=== PATIENT | male | born 1965 | race Caucasian/White ===

== ENCOUNTER 2017-02-08 17:08 | Emergency (ER) | payer OTHER ==
[~2017-02-08] VITALS: Ht 170.2 cm; Wt 64.9 kg
[~2017-02-08 17:08] MED LIST: ACET-7568 PO; ASCO500C19 PO; ASPI-292 PO; CIPR500T4 PO; CLON0.1T79 PO; DIVA500E2 PO; DOCU100C5 PO; OLAN10TA26 PO; PHE6.25L PO; QUET200T PO; QUET300T26 PO; [UNRECOGNIZED DRUG - CODE]; [UNRECOGNIZED DRUG - CODE] PO; [UNRECOGNIZED DRUG - CODE] PO; [UNRECOGNIZED DRUG - CODE] PO; [UNRECOGNIZED DRUG - OTHER] PO
[2017-02-08 18:12] VITALS: BP 109/69
--- NOTE | 2017-02-08 19:30 | NUR ---
51//M BIB [facility] WITH C/O SOB, CARE[facility] STATED " HE HAS BEEN HAVING CONGESTION, AND SHALLOW BREATHING. 18RR, EVEN AND REGULAR, ALL LUNG SOUNDS CBTA, SATS 90% ON RA. 118HR EVEN AND REGULAR. PT PLACED ON O2 2LPMNC, SATS 96%. [facility] REPORTS HE HAS BEEN COUGHING, AND HAS BEEN GIVEN PROMTEHAZINE PRN WITH MINIMAL RELIEF OF SYMPTOMS. NO S/S OF PAIN AT THIS TIME, PT CALM AND LYING ON BED. [facility] AT BEDSIDE. BED IN LOW POSITION, HOB ELEVATED HX: CEREBRAL PALSY, ATYPICAL PSYCHOSIS.
[2017-02-08 22:28] VITALS: BP 109/49
--- NOTE | 2017-02-08 22:29 | NUR ---
Patient discharged with v/s stable. Written and verbal after care instructions given and explained. Patient alert, oriented and verbalized understanding of instructions. Ambulatory with steady gait. All questions addressed prior to discharge. ID band removed. Patient advised to follow up with PMD. Rx of AZITHROMYCIN given. Patient educated on indication of medication including possible reaction and side effects. Opportunity to ask questions provided and answered.
[2017-02-09] MEDS ORDERED: PRAV20TA2 PO (21:13)
[2017-02-09] MEDS ORDERED: ASPI81CT89 PO (21:13)
[2017-02-09] MEDS ORDERED: ALPR0.5T2 PO (21:13)
[2017-02-09] MEDS ORDERED: BENA5TAB4 PO (21:13)
[2017-02-09] MEDS ORDERED: ATI.5 PO (21:13)
[2017-02-09] MEDS ORDERED: SYN.05 PO (21:13)
[2017-02-09] MEDS ORDERED: OLAN2.5T1 PO (21:13)
== END 2017-02-08 22:29 | disposition home or self-care (01) ==
LOC: MED 17:08
DX: J02.9 Acute pharyngitis, unspecified (principal); Z79.899 Other long term (current) drug therapy; Z91.041 Radiographic dye allergy status; Z79.82 Long term (current) use of aspirin
CPT/HCPCS: 71010; 99283; Q0092

== ENCOUNTER 2017-02-09 20:50 | Inpatient (IN) | payer OTHER ==
[~2017-02-09] VITALS: Ht 165.1 cm; Wt 60.8 kg
--- NOTE | 2017-02-09 20:50 | NUR ---
PT MAXINE ALS. TAKEN TO BED 4
--- NOTE | 2017-02-09 20:51 | NUR ---
51/M BIBA C/O WORSENING SOB SINCE 1800 [facility]. PT WAS SEEN YESTERDAY IN ER FOR SIMILAR SYMPTOMS, DX: URI RX: AZITHROMYCIN. PT PRESENTS WITH EXCESSIVE COUGHING, 30RR LABORED AND SHALLOW, 89% SPO2 10LPM ON MASK, 142 HR. COARSE CRACKLES THROUGHOUT NOTED. PT PLACED ON HIGH MENDOZA AND NONREBREATHER MASK. SATS 91% ,142 HR. RT CALLED IN. ORAL SUCTIONING WITH THICK WHITE/YELLOW SPUTUM. PMH: MENTAL RETARDATION, CEREBAL PALSY, ATYPICAL PSYCHOSIS. EMS REPORTED THEY GAVE 2 DOSES OF ALBUTEROL NEB.
[2017-02-09 20:53] VITALS: BP 159/108
--- NOTE | 2017-02-09 21:00 | NUR ---
Dr. Price evaluating patient at bedside.
--- NOTE | 2017-02-09 21:04 | NUR ---
X-Ray at bedside.
--- NOTE | 2017-02-09 21:08 | NUR ---
Respiratory Therapist at bedside for respiratory intervention.
[2017-02-09] MEDS ORDERED: ASPI81CT89 PO (21:13)
[2017-02-09] MEDS ORDERED: ALBUTEROL SULFATE/IPRATROPIU 3 ML SOL IH ONE (21:13)
[2017-02-09] MEDS ORDERED: SYN.05 PO (21:13)
[2017-02-09] MEDS ORDERED: PRAV20TA2 PO (21:13)
[2017-02-09] MEDS ORDERED: ALPR0.5T2 PO (21:13)
[2017-02-09] MEDS ORDERED: BENA5TAB4 PO (21:13)
[2017-02-09] MEDS ORDERED: ATI.5 PO (21:13)
[2017-02-09] MEDS ORDERED: OLAN2.5T1 PO (21:13)
[2017-02-09] MEDS ORDERED: IPRATROPIUM 0.02% 0.5 MG/2.5 ML NEBU INH ONE ×2 (21:20→21:35)
[2017-02-09] MEDS ORDERED: NACL 0.9% 1,000 ML IV ONE ×3 (21:20→23:55)
[2017-02-09] MEDS ORDERED: LEVOFLOXACIN 750 MG/D5W PREMIX 150 ML IV ONE (21:20)
[2017-02-09] MEDS ORDERED: ALBUTEROL 0.083% 2.5 MG/3 ML NEBU INH ONE ×2 (21:20)
[2017-02-09] MEDS ORDERED: VANCOMYCIN 1GM/DEXT 5% PREMIX 200 ML IV ONE (21:20)
[2017-02-09] MEDS ORDERED: methylPREDNISolone SS 125 MG in WATER STERILE 2 ML IV ONE (21:20)
--- NOTE | 2017-02-09 21:38 | NUR ---
I WAS CALLED IN ER FOR THE PT THAT IS SOB AND SAT 89% IN NRB. I JUST WENT TO ER TO SEE THE PT, AND DR ZIEGLER GAVE ME VERBAL ORDER TO DO TWO DUONEB HHN TX AND SX PT, AND I JUST DID, BUT WHEN THE ORDER COME, HE WROTE ALBUTEROL TIMES 2, AND ATROVENT TIMES 2, WHO IS THE SAME LIKE TWO DUONEBS.
[2017-02-09] MEDS ORDERED: VANCOMYCIN 1,000 MG VIAL ONE (21:39)
[2017-02-09] MEDS ORDERED: LORazepam 2 MG/ML VIAL IVP ONE ×2 (21:45→23:30)
[2017-02-09 21:49] LABS: BASOPHILS # (AUTO) 0.1 K/uL (0.00-0.22); BASOPHILS % (AUTO) 1.4 % (0.0-2.0); EOSINOPHILS % (AUTO) 0.2 % (0.0-4.0); HEMATOCRIT 38.9 % (36-52); HEMOGLOBIN 13.2 g/dL (12.0-18.0); LYMPHOCYTES # (AUTO) 0.6 K/uL (2.0-11.5); LYMPHOCYTES % (AUTO) 7.1 % (20.5-51.1); MEAN CORPUSCULAR HEMOGLOBIN 32 pg (27-31); MEAN CORPUSCULAR HGB CONC 34 g/dL (33-37); MEAN CORPUSCULAR VOLUME 94 fL (80-94); MONOCYTES % (AUTO) 12.8 % (1.7-9.3); NEUTROPHILS # (AUTO) 6.3 K/uL (1.8-7.7); NEUTROPHILS % (AUTO) 78.5 % (42.2-75.2); PLATELET COUNT (AUTO) 112 K/uL (140-450); RED BLOOD CELL COUNT(AUTO) 4.15 MIL/uL (4.20-6.10); RED CELL DISTRIBUTION WIDTH 12.6 % (11.6-13.7)
--- NOTE | 2017-02-09 22:00 | NUR ---
BP: 138/76, 137HR, 44RR, 95% SPO2 ON NONREBREATHER, HI FLOW. PT ORALLY SUCTIONED, WHITE/YELLOW SECRETIONS NOTED. COARSE LUNG SOUNDS THROUGHOUT, SHALLOW AND LABORED RESPIRATIONS NOTED. ER MD UPDATED OF PT STATUS.
[2017-02-09 22:04] LABS: ALBUMIN 3.3 g/dL (3.4-5.0); ANION GAP 17.1 (8-16); CARBON DIOXIDE 24.1 mmol/L (21-32); CREATININE 1.1 mg/dL (0.7-1.3); POTASSIUM 3.2 mmol/L (3.5-5.1); TOTAL BILIRUBIN 0.5 mg/dL (0.0-1.0)
--- NOTE | 2017-02-09 22:20 | NUR ---
PT APPEARS MORE CALM, RESTING. VS: 132/81, 138HR, 96% ON HIFLOW NONREBREATHER, 40RR EVEN AND SLIGHTLY LABORED. PT CONTINUOUS TO HAVE ORAL SECRETIONS, SUCTIONED ORALLY, YELLOW/WHITE SECRETIONS NOTED. PT REPOSITIONED TO RT SIDE, BED ON HIGH-FOWLERS.
[2017-02-09] MEDS ORDERED: diphenhydrAMINE 50 MG/ML VIAL IVP ONE (23:20)
--- NOTE | 2017-02-09 23:25 | NUR ---
PT RESTLESS, WITH SHALLOW AND LABORED BREATHING. VS: 152/99,138 HR, 86% HIFLOW, 36RR. ER MD MADE AWARE OF PT STATUS. RECEIVED ORDER TO GIVE ATIVAN IV, SEE MAR
[2017-02-09] MEDS ORDERED: HYDROcodone/APAP 7.5/325 MG 1 TAB PO PRN (23:40)
[2017-02-09] MEDS ORDERED: DOCUSATE SODIUM 100 MG GELCAP PO PRN (23:40)
[2017-02-09] MEDS ORDERED: ONDANSETRON 4 MG/2 ML VIAL IM/IVP PRN (23:40)
[2017-02-09] MEDS ORDERED: MORPHINE SULFATE 2 MG/ML SYR IVP PRN (23:40)
[2017-02-09] MEDS ORDERED: ACETAMINOPHEN 325 MG TAB PO PRN (23:40)
--- NOTE | 2017-02-09 23:45 | NUR ---
PT CONTINUOUS TO BE RESTLESS, SATS 88% ON HIFLOW, SHALLOW AND LABORED RESPIRATIONS 51RR, 139HR, 148/98 BP. ER MD MADE AWARE OF PT STATUS.
[2017-02-10] VITALS (99 sets, daily range): BP systolic 62–136; BP diastolic 35–101
--- NOTE | 2017-02-10 00:03 | NUR ---
RT AT BEDSIDE.
[2017-02-10] MEDS ORDERED: NACL 0.9% 1,000 ML IV ONE ×3 (00:05→16:05)
--- NOTE | 2017-02-10 00:10 | NUR ---
Note undone in EDM - 02/10/17 at 0348 by GLORIA PT SATS ON 82% ON NONREBREATHER HIFLOW, 146 HR, 56RR LABORED, BP 159/108. PT RESTLESS AND PALE. ER MD MADE AWARE OF PT STATUS. PT PREPARED FOR RSI, ETOMIDATE GIVEN, RT AT BEDSIDE. ETT 7.5CM, 23 AT LIP. VENT: AC, 500TV, RATE 14, 5 PEEP, 100% FIO2. PROPOFOL DRIP STARTED AT 5MCG/KG/MIN PER MD ORDERS,TITRATED PER PROTOCOL, SEE MAR.
[2017-02-10] MEDS ORDERED: PROPOFOL 200 MG/20 ML VIAL IV ONE (00:20)
[2017-02-10] MEDS ORDERED: ETOMIDATE 20 MG/10 ML VIAL IVP ONE (00:20)
--- NOTE | 2017-02-10 00:28 | NUR ---
RASS +2, VS: 114/69, 128HR, 96% VENT, 42 RR. PROPOFOL DRIP STARTED AT 5MCG/KG/MIN PER MD ORDERS,TITRATED PER PROTOCOL, SEE MAR.
[2017-02-10] MEDS ORDERED: PROPOFOL 1000 MG/100 ML PREMIX 100 ML IV ONE ×2 (00:30→05:00)
--- NOTE | 2017-02-10 00:30 | NUR ---
PT WAS INTUBATED DUE TO RESP DISTRESS AND ABG PO2 56 AND PT IS BREATHING FAST OVER 46 .TUBE SIZE 7.5 AT 24 CM AT THE LIP, XRAY WELCH CONFORM THE POSITION.SUCTION DONE FOR THE CULTURE DONE AND SENDED TO THE LAB , LARGE PINK FROTHY SECRETION.
--- NOTE | 2017-02-10 00:42 | NUR ---
RASS +2, VS: 132/94, 118HR, 42RR, 100% MECH VENT. PROPOFOL TITRATED PER PROTOCOL, SEE MAR
[2017-02-10 00:57] LABS: PROTHROMBIN TIME 10.3 secs (10.8-13.4)
--- NOTE | 2017-02-10 00:57 | NUR ---
RASS +2, VS: 119/57, 120HR, 36RR, 100% MECH VENT. PROPOFOL TITRATED PER PROTOCOL, SEE MAR
[2017-02-10 01:09] LABS: CHOL/HDL RATIO 5.9 (1-4.5); FREE T4 (FREE THYROXINE) 0.77 ng/dL (0.76-1.46); MAGNESIUM 1.8 mg/dL (1.8-2.4); PHOSPHORUS 2.9 mg/dL (2.5-4.9); THYROID STIMULATING HORMONE 1.1 uIU/mL (0.34-3.74)
--- NOTE | 2017-02-10 01:10 | NUR ---
Note kraigone in EDM - 02/10/17 at 0351 by GLORIA PT SATS ON 82% ON NONREBREATHER HIFLOW, 146 HR, 56RR LABORED, BP 159/108. PT RESTLESS AND PALE. ER MADE AWARE OF PT STATUS. PT PREPARED FOR RSI, ETOMIDATE GIVEN, RT AT BEDSIDE. ETT 7.5CM, 23 AT LIP. VENT: AC, 500TV, RATE 14, 5 PEEP, 100% FIO2.
--- NOTE | 2017-02-10 01:10 | NUR ---
RASS-3, BP: 128/72, 118HR, 32RR, 100% MECH VENT.
[2017-02-10 01:21] LABS: APPEARANCE,URINE CLEAR (CLEAR); BILIRUBIN,URINE NEGATIVE (NEGATIVE); BLOOD, URINE NEGATIVE (NEGATIVE); COLOR,URINE YELLOW (YELLOW); LEUKOCYTE ESTERASE ,URINE NEGATIVE (NEGATIVE); NITRITE, URINE NEGATIVE (NEGATIVE); UGLUCOSE NEGATIVE (NEGATIVE)
--- NOTE | 2017-02-10 01:23 | NUR ---
Patient will be admitted to care of [facility]. Admited to ICU. Will go to room 2. Belongings list completed. Report to HIMA SANDOVAL. PT TRANSPORTED BY JOSIAH SANDOVAL, IZABELLA RN AND MARION SANDOVAL VIA [facility] WITH CARDIAC MONITORING/[facility]. VENT ACCOMPANIED BY RT.
--- NOTE | 2017-02-10 01:30 | NUR ---
PT WAS TRANSFER AT ICU BED 2VIA AMBU BAG PLACED PT ON THE VENT, NO INCIDENTS NOTED.
--- NOTE | 2017-02-10 01:30 | NUR ---
PT NEW ADMIT.PT WITH SOB AT [facility] PER REPORT AND HAVE WORSENING.PT WAS BROUGHT TO ER.RECEIVED PT FROM ER. PT TRANSFERRED BY RUBI WITH 3 RN. PT IS ON ETT ,BAGGING BY THE RN DURING TRANSFER. PT IS ON PROPOFOL AT 20 MCG/KG/HR AT THIS TIME. PT IS RASS +2. RT COME AND PLACE PT ON VENT. VENT SETTING AC 14 TV 500 FIO2 100 PEEP 5 . NOTED SMALL TO MODERATED WHITE PINKISH SECRETION. LUNGS SOUND CLEAR . HOB UP 30-45 DEGREE. PERIPHERAL LINE TO LEFT HAND NO 22 AND LEFT AC NO 22 SALINE FLUSH TO BOTH AREA. SKIN INTACT NO EDEMA NOTED. ABD SOFT NON DISTENDED. NPO AT THIS TIME. F/C IN PLACE WITH YELLOW CLEAR COLOR.
[2017-02-10 01:40] LABS: HYALINE CASTS, URINE 0-10 /LPF (None Seen); RBC,URINE 0-5 (RARE) /HPF (0-5); WBC,URINE 0-5 (RARE) /HPF (0-5)
--- NOTE | 2017-02-10 01:45 | NUR ---
THE MRSA NARES SPECIMEN SENT TO LABS.RESULT STILL PENDING
[2017-02-10] MEDS ORDERED: PROPOFOL 1000 MG/100 ML PREMIX 100 ML IV PRN (02:20)
[2017-02-10] MEDS: NACL 0.9% 1,000 ML IV SCH ×4 (02:24→23:08)
--- NOTE | 2017-02-10 02:30 | NUR ---
IV NS GIVEN ORDER AT 60 CC/HR TOLERATED WELL.
[2017-02-10] MEDS: ALBUTEROL 0.083% 2.5 MG/3 ML NEBU INH SCH ×6 (03:00→23:34)
--- NOTE | 2017-02-10 03:00 | NUR ---
COME TO SEE PT CONTINUE THE PROPOFOL
[2017-02-10] MEDS ORDERED: POTASSIUM CHLORIDE 20% 40 MEQ/15 ML UDC GT SCH (04:05)
--- NOTE | 2017-02-10 05:21 | NUR ---
UNABLE TO INSERT NGT, OGT INSERTED AT 0445, DR. NAVARRO (RESIDENT) IN THE UNIT AT THIS TIME AND INFORMED THAT OGT WAS INSERTED.
--- NOTE | 2017-02-10 06:00 | NUR ---
COME TO SEE PT NEW ORDER PROTONIX FOR GT PROPYLAXIS.
[2017-02-10 06:18] LABS: ALBUMIN 2.4 g/dL (3.4-5.0); ANION GAP 14.8 (8-16); CARBON DIOXIDE 21.9 mmol/L (21-32); CREATININE 0.8 mg/dL (0.7-1.3); MAGNESIUM 1.4 mg/dL (1.8-2.4); PHOSPHORUS 1.6 mg/dL (2.5-4.9); POTASSIUM 3.7 mmol/L (3.5-5.1); TOTAL BILIRUBIN 0.4 mg/dL (0.0-1.0)
--- NOTE | 2017-02-10 06:34 | NUR ---
PATIENT HAS BEEN SCREENED AND CATEGORIZED HIGH NUTRITION RISK. PATIENT WILL BE SEEN WITHIN 1-2 DAYS OF ADMISSION. 02/10/17-02/11/17 CRYSTAL PALACIOS MS, RDN
[2017-02-10] MEDS: LEVOTHYROXINE 0.05 MG TAB NG SCH (06:36)
--- NOTE | 2017-02-10 06:47 | NUR ---
SPOKE WITH [facility] TAB[employer] (BOARD AND CARE FISHING FLOATS ASSEMBLER), PATIENT DIDNT RECEIVE PNA AND FLU VACCINES YET, WILLING FOR THE PATIENT TO HAVE THOSE VACCINES ADMINISTERED BEFORE DISCHARGE.
--- NOTE | 2017-02-10 07:23 | NUR ---
REPORT GIVEN TO AM SHIFT. PT IS STILL SEDATED AND STABLE AT THIS TIME.
--- NOTE | 2017-02-10 07:25 | NUR ---
RECEIVED REPORT FROM NOC SHIFT. PT ON VENT SETTING A/C VC MODE FIO2 100% VT 500 RR [address]. PT DRY AND WARM TO TOCUH. BOTH PUPILS REACTIVE TO LIGHT. LUNGS SOUND CLEAR DIMINISHED. PERIPHERAL LINE ON RFA AND LFA, INTACT, NOT SWOLLEN. BOWEL SOUND PRESENT. VANEGAS'S CATH IN PLACE. WILL CONTINUE TO MONITOR. WILL CONTINUE TO MONITOR.
--- NOTE | 2017-02-10 07:40 | NUR ---
SEEN BY DR ROWE SAID NO FLU OR PNEUMONIA VACCINE AT THIS TIME.
[2017-02-10] MEDS: IPRATROPIUM 0.02% 0.5 MG/2.5 ML NEBU INH PRN ×2 (07:55→11:43)
--- NOTE | 2017-02-10 07:55 | NUR ---
RECEIVED ON A [employer] R860 VENTILATOR PLUGGED INTO RED OUTLET TOLERATING WELL WITHOUT ADVERSE REACTIONS NOTED TO A PORTEX ENDOTRACHEAL TUBE #7.5 SECURED AT 24cm WITH AN ANCHOR FAST CUFF PRESSURE CHECKED NOTED AMBU BAG NOTED AT HOB LOC SEDATED BREATH SOUNDS CLEAR BILATERAL RESPIRATIONS TACHYPNEIC WITH GOOD CHEST RISE AND AERATION THROUGHOUT AIRWAY PATENT Addendum: 02/10/17 at 1027 by Lawrence Barba RT SATURATION 100% ON FIO2 OF 100% ABG PO2 284.0 mmHg GRADUAL FIO2 TITRATION TO 80% ALL NOTIFIED Addendum: 02/10/17 at 1325 by Lawrence Barba RT SHAYNE NOTIFIED OF FIO2 CHANGE PROVIDER CORRECTION
[2017-02-10] MEDS: PANTOPRAZOLE 40 MG INJ VIAL IVP SCH (08:42)
[2017-02-10] MEDS: PIPER/TAZO 3.375GM/D5W PREMIX 50 ML IV SCH ×4 (08:42→23:07)
[2017-02-10] MEDS: BENAZEPRIL 5 MG TAB NG SCH (08:43)
[2017-02-10] MEDS: ALPRAZolam 0.5 MG TAB NG SCH ×2 (08:43→20:55)
[2017-02-10] MEDS: LACTOBACILLUS RHAMNOSUS GG 1 EACH CAP PO SCH (08:43)
[2017-02-10] MEDS: OLANZapine 5 MG TAB NG SCH ×2 (08:44→20:54)
[2017-02-10] MEDS: DIVALPROEX 500 MG TABEC PO SCH ×2 (08:44→20:54)
[2017-02-10] MEDS: QUEtiapine FUMARATE 100 MG TAB NG SCH ×2 (08:45→20:54)
[2017-02-10] MEDS: ATORVASTATIN 20 MG TAB NG SCH (08:45)
--- NOTE | 2017-02-10 10:21 | NUR ---
02/10/17 RD INITIAL ASSESSMENT COMPLETED PLEASE REFER TO NUTRITION ASSESSMENT UNDER CARE ACTIVITY FOR ESTIMATED NUTRITIONAL NEEDS. RD RECOMMENDATIONS: 1. WHEN MEDICALLY APPROPRIATE PER MD, CONSIDER INITIATING ENTERAL FEEDINGS: NUTREN PULMONARY AT 40 ML/HR X 24 HOURS. THIS PROVIDES 960 ML TOTAL VOLUME, 1440 KCAL, 65.4 GM PROTEIN, 744 ML TOTAL FREE WATER. 2. CONSIDER WATER FLUSH OF 185 ML Q4H TO PROVIDE 1110 ML FREE WATER. 2. CONSULT RDN PRN. 3. RD WILL F/U 2-3 DAYS; HIGH RISK. CRYSTAL PALACIOS, , RDN
--- NOTE | 2017-02-10 10:27 | NUR ---
SEDATED NO DISTRESS NOTED BREATH SOUNDS CLEAR BILATERAL WITH GOOD CHEST RISE
--- NOTE | 2017-02-10 10:27 | NUR ---
SEDATED RESTING WELL NO DISTRESS NOTED BREATH SOUNDS RHONCHI BILATERAL WITH GOOD CHEST RISE DEEP ENDOTRACHEAL SUCTION FOR MODERATE THICK YELLOW SECRETIONS AIRWAY PATENT Addendum: 02/10/17 at 1038 by Lawrence Barba RT DISREGARD PREVIOUS NOTED PROVIDER MISTAKE
--- NOTE | 2017-02-10 10:43 | NUR ---
BP IS TRENDING DOWN, CURRENTLY 61/39. NOTIFIED DR. HALL. WILL FOLLOW UP ON ORDERS.
--- NOTE | 2017-02-10 10:58 | NUR ---
RECHECKED BP: 71/46. WILL CONTINUE TO MONITOR.
--- NOTE | 2017-02-10 11:28 | NUR ---
BOILER TENDER FROM [facility] IN TO SEE PT. UPDATED HIM ON PT'S PLAN OF CARE.
--- NOTE | 2017-02-10 11:33 | NUR ---
PT RESTING IN BED COMFORTABLY. ON CONTINUOUS MONITORING.
--- NOTE | 2017-02-10 11:43 | NUR ---
SEDATED RESPONSIVE TO MOVEMENT BREATH SOUNDS RALES BILATERAL GOOD CHEST RISE ENDOTRACHEAL SUCTION FOR NO SPUTUM RETURN AIRWAY PATENT
--- NOTE | 2017-02-10 12:55 | NUR ---
RECEIVED CALL FROM YANIRA JORDAN, THE PT'S MOTHER, UPDATED HER ON PT'S PLAN OF CARE. [phone].
--- NOTE | 2017-02-10 13:05 | NUR ---
DR. ROWE MADE AWARE OF RD'S RECOMMENDATIONS TO START FEEDING WITH NUTREN PULMONARY AT 40 CC/H. WILL AWAIT FOR ORDERS.
--- NOTE | 2017-02-10 13:29 | NUR ---
SEDATED TOLERATING VENTILATORY WELL WITHOUT ADVERSE REACTIONS NOTED BREATH SOUND DIFFUSED RALES BILATERAL GOOD CHEST RISE ENDOTRACHEAL SUCTION FOR NO SPUTUM RETURN AIRWAY PATENT SATURATION 100% ON FIO2 OF 80% TITRATED FIO2 TO 60% SOCRATES/RN NOTIFIED
[2017-02-10] MEDS ORDERED: MAG SULF 2000 MG/WATER PREMIX 100 ML IV ONE (14:15)
--- NOTE | 2017-02-10 15:14 | NUR ---
SEDATED RESTING COMFORTABLY NO APPARENT PU;MONARY DISTRESS NOTED BREATH SOUNDS RHONCHI WITH LATE INSP WHHEZE BILATERAL GOOD CHEST RISE ENDOTRACHEAL SUCTION FOR MODERATED THICK YELLOW SECRETIONS AIRWAY PATENT SATURATION 100% ON FIO2 OF 60% POST HHN THERAPY GRADUAL TITRATION TO 50% SOCRATES/RN NOTIFIED
--- NOTE | 2017-02-10 15:34 | NUR ---
ORAL CARE PROVIDED. PT RESTING IN BED COMFORTABLY.
--- NOTE | 2017-02-10 16:02 | NUR ---
CALLED DRPaolo OFFICE SPOKE WITH DR. WEBBER NOTED DECREASE IN BP. ORDERED BOLUS 0.9% NS.
--- NOTE | 2017-02-10 16:20 | NUR ---
DR. MUHAMMAD IN TO SEE PT. WILL FOLLOW UP ON ORDERS.
[2017-02-10] MEDS: SODIUM PHOS / POTASSIUM PHOS 1 PKT PDR NG SCH (17:13)
--- NOTE | 2017-02-10 17:48 | NUR ---
SEDATED NO DISTRESS NOTED GOOD CHEST RISE ENDOTRACHEAL SUCTION FOR NO SPUTUM RETURN AIRWAY PATENT
[2017-02-10] MEDS: PROPOFOL 1000 MG/100 ML PREMIX 100 ML IV PRN (18:59)
--- NOTE | 2017-02-10 19:18 | NUR ---
PT RESTING IN BED COMFORTABLY. PT [employer] AT BEDSIDE.
--- NOTE | 2017-02-10 19:21 | NUR ---
REPORT GIVEN TO NOC SHIFT.
--- NOTE | 2017-02-10 19:26 | NUR ---
REPORT GIVEN TO NIGHT NURSE FOR CONTINUITY OF CARE. PT IS IN STABLE CONDITION.
--- NOTE | 2017-02-10 19:30 | NUR ---
RECEIVED REPORT FROM MORNING NURSE, JAIME CLIFFORD. PT IS ON PROPOFOL @ 5 MCG/KG/MIN WITH RASS -4. PERRL. ETT TO VENT AC14, FIO2 50, TV 500, PEEP 5. ON CARDIAC MONITORING AND SR. BP 104/26, HR 104, O2 SAT 97%. PARENTS OF THE PT AT BED SIDE. DR. MUHAMMAD AT BED SIDE MADE AWARE OF THE VS AND CONDITION AND IS GETTING A CONSENT FOR CENTRAL LINE INSERTION FROM THE PARENTS AT THIS TIME. LUNG SOUNDS DIMINISHED FROM BILATERAL LUNGS. S1 AND S2 HEARD. OGT TO FEEDING. IN PLACE AND RESIDUAL 5ML NOTED. BOWEL SOUNDS ACTIVE FROM ALL 4 QUADS. IV TO RFA 18G, L HAND 22G, AND L AC 18G. ALL PATENT AND ASYMPTOMATIC. FALCC=0. VANEGAS DRAINING CLEAR YELLOW URINE VIA GRAVITY. SCD TO BILATERAL LOWER EXTREMITIES. OFF LOADING PRESSURE AREAS. CALL LIGHT IN REACH. BED IS KEPT TO THE LOWEST. HOB ELEVATED TO 30 DEGREES. WILL CONTINUE TO MONITOR. Addendum: 02/10/17 at 2003 by Vesna Pacheco RN TYPO FOR PROPOFOL RATE: @15 MCG/KG/MIN
--- NOTE | 2017-02-10 20:00 | NUR ---
RECEIVED PT ON HE SAME VENT SETTINGS, PARENTS AT BE SIDE, VITALS STABLE, SX SMALL CLOUDY SECRETION, NO DISTRESS NOTED.
[2017-02-10] MEDS: CALCIUM CARBONATE 500 MG TAB PO SCH (20:52)
[2017-02-10] MEDS ORDERED: LEVOFLOXACIN 750 MG/D5W PREMIX 150 ML IV SCH (21:00)
[2017-02-10] MEDS ORDERED: LORazepam 2 MG/ML VIAL IVP PRN (21:45)
[2017-02-10] MEDS ORDERED: LORazepam 2 MG/ML VIAL ONE (21:59)
--- NOTE | 2017-02-10 22:00 | NUR ---
DR. MUHAMMAD, THE [employer], AND THE WIGS SALESPERSON AT BED SIDE FOR CENTRAL LINE INSERTION. TIME OUT CALLED FOR VERIFICATION. PT SEDATED AT THIS TIME WITH RASS -4.
--- NOTE | 2017-02-10 22:25 | NUR ---
DR. MUHAMMAD INSERTED CENTRAL LINE WITH TRIPLE LUMEN TO THE RIGHT IJ. PT TOLERATED WELL. NO ACUTE DISTRESS NOTED. CALLED RADIOLOGY FOR CHEST XR FOR CENTRAL LINE PLACEMENT.
--- NOTE | 2017-02-10 22:36 | NUR ---
RADIOLOGY AT BED SIDE TO PERFORM CHEST XR FOR CENTRAL LINE PLACEMENT. DR. MUHAMMAD AT BED SIDE
--- NOTE | 2017-02-10 23:15 | NUR ---
PHONE CALL MADE TO PTS MOM YANIRA JORDAN PER HER REQUEST. UPDATED ON PTS PRESENT CONDITION.MADE AWARE CENTRAL LINE ALREADY INSERTED, AWAITING CONFIRMATION OF PLACEMENT BY X RAY.QUESTIONS ANSWERED.
[2017-02-11] VITALS (106 sets, daily range): BP systolic 73–173; BP diastolic 44–94
--- NOTE | 2017-02-11 02:10 | NUR ---
PHONE CALL MADE TO DR MUHAMMAD REGARDING LOW BLOOD PRESSURE. NEW ORDER RECEIVED.CARRIED OUT. Addendum: 02/11/17 at 0338 by Kamila Vasquez RN DR MUHAMMAD ALSO INFORMED THAT BLEEDING OF THE RT IJ TLC SITE;PRESSURE APPLIED.NO NEW ORDER
[2017-02-11] MEDS ORDERED: NACL 0.9% 500 ML IV ONE (02:15)
--- NOTE | 2017-02-11 03:25 | NUR ---
DR. MUHAMMAD MADE AWARE OF THE CHEST XR RESULT.
[2017-02-11] MEDS: ALBUTEROL 0.083% 2.5 MG/3 ML NEBU INH SCH ×6 (03:50→22:56)
--- NOTE | 2017-02-11 04:55 | NUR ---
ORDER RECEIVED OK TO USE THE CENTRAL LINE AND MONITOR CVP. CONNECTED CVP ORDERED AND CVP IS READING 11.
[2017-02-11] MEDS: PIPER/TAZO 3.375GM/D5W PREMIX 50 ML IV SCH ×4 (05:26→23:53)
[2017-02-11] MEDS: LEVOTHYROXINE 0.05 MG TAB NG SCH (05:32)
--- NOTE | 2017-02-11 05:45 | NUR ---
PT WAS MONITOR DURING THE NIGHT, NO DISTRESS , HE RECEIVED ALL THE TX, CHANGED HME
[2017-02-11 06:52] LABS: BASOPHILS # (AUTO) 0.1 K/uL (0.00-0.22); BASOPHILS % (AUTO) 1.7 % (0.0-2.0); EOSINOPHILS % (AUTO) 0.1 % (0.0-4.0); HEMATOCRIT 30.4 % (36-52); HEMOGLOBIN 9.9 g/dL (12.0-18.0); LYMPHOCYTES # (AUTO) 1.1 K/uL (2.0-11.5); LYMPHOCYTES % (AUTO) 18.5 % (20.5-51.1); MEAN CORPUSCULAR HEMOGLOBIN 31 pg (27-31); MEAN CORPUSCULAR HGB CONC 33 g/dL (33-37); MEAN CORPUSCULAR VOLUME 96 fL (80-94); MONOCYTES # (AUTO) 0.6 K/uL (0.8-1.0); MONOCYTES % (AUTO) 9.9 % (1.7-9.3); NEUTROPHILS # (AUTO) 4.3 K/uL (1.8-7.7); NEUTROPHILS % (AUTO) 69.8 % (42.2-75.2); PLATELET COUNT (AUTO) 109 K/uL (140-450); RED BLOOD CELL COUNT(AUTO) 3.18 MIL/uL (4.20-6.10); RED CELL DISTRIBUTION WIDTH 13.7 % (11.6-13.7); WHITE BLOOD COUNT (AUTO) 6.1 K/uL (4.8-10.8)
--- NOTE | 2017-02-11 07:10 | NUR ---
RECEIVED REPORT FROM CLINIC COORDINATOR. RECEIVED PT ON ETT TO VENT WITH VENT SETTING AC 14 FIO2 50 TV 500 PEEP 5. PT DRY AND WARM TO TOUCH. PUPILS REACTIVE TO LIGHT. OG TUBE IN PLACE. ON OGT FEEDING. NO RESIDUAL. RIJ CVP LINE. CLEAR LUNGS SOUND ON AUSCULTATION. ABDOMEN SOFT AND ROUND. BOWEL SOUND PRESENT ON ALL FOUR QUADRANTS. VANEGAS'S CATH IN PLACE DRAINING YELLOW URINE VIA GRAVITY. WILL CONTINUE TO MONITOR.
[2017-02-11 07:23] LABS: ANION GAP 13.8 (8-16); CARBON DIOXIDE 22.7 mmol/L (21-32); CREATININE 0.7 mg/dL (0.7-1.3); POTASSIUM 3.5 mmol/L (3.5-5.1)
--- NOTE | 2017-02-11 07:23 | NUR ---
REPORT GIVEN TO MORNING NURSE, JAIME CLIFFORD FOR CONTINUITY OF CARE. PT IS IN STABLE CONDITION WITH NO ACUTE DISTRESS NOTED. ALL SAFETY PRECAUTIONS ARE IN PLACE.
[2017-02-11 07:26] LABS: MAGNESIUM 2.6 mg/dL (1.8-2.4); PHOSPHORUS 1.8 mg/dL (2.5-4.9)
--- NOTE | 2017-02-11 08:00 | NUR ---
BODY TEMPERATURE 100.1. REMOVED EXTRA CLOTHES. DID SPONGE BATH. CONTINUOUS MONITORING.
--- NOTE | 2017-02-11 08:00 | NUR ---
REPOSITIONING DONE. KEPT PT CLEAN AND DRY.
--- NOTE | 2017-02-11 08:27 | NUR ---
RECEIVED ON A [employer] R860 VENTILATOR PLUGGED INTO RED OUTLET TOLERATING WELL WITHOUT ADVERSE REACTIONS NOTED TO A PORTEX ENDOTRACHEAL TUBE #7.5 SECURED AT 24cm WITH AN ANCHOR FAST CUFF PRESSURE CHECKED NOTED AMBU BAG NOTED AT HOB LOC SEDATED BREATH SOUNDS RHONCHI BILATERAL WITH GOOD CHEST RISE ENDOTRACHEAL SUCTION FOR SMALL THIN YELLOW SECRETIONS AIRWAY PATENT Addendum: 02/11/17 at 1034 by Lawrence Barba RT SATURATION 99% ON FIO2 OF 50% POST HHN THERAPY TITRATED FIO2 TO 45% SOCRATES/RN NOTIFIED
--- NOTE | 2017-02-11 08:38 | NUR ---
DR. SAINZ AND RESIDENT IN TO SEE THE PT. NO NEW ORDER AT THIS TIME. WILL FOLLOW UP ON ORDER.
--- NOTE | 2017-02-11 09:00 | NUR ---
REASSESS TEMPERATURE DECREASED TO 98.4. PT ON CONTINUOUS MONITORING.
[2017-02-11] MEDS: BENAZEPRIL 5 MG TAB NG SCH (09:09)
[2017-02-11] MEDS: LACTOBACILLUS RHAMNOSUS GG 1 EACH CAP PO SCH (09:10)
[2017-02-11] MEDS: CALCIUM CARBONATE 500 MG TAB PO SCH ×2 (09:10→20:14)
[2017-02-11] MEDS: ALPRAZolam 0.5 MG TAB NG SCH ×2 (09:10→20:14)
[2017-02-11] MEDS: DIVALPROEX 500 MG TABEC PO SCH ×2 (09:11→20:14)
[2017-02-11] MEDS: QUEtiapine FUMARATE 100 MG TAB NG SCH ×2 (09:11→20:14)
[2017-02-11] MEDS: OLANZapine 5 MG TAB NG SCH ×2 (09:12→20:14)
[2017-02-11] MEDS: ATORVASTATIN 20 MG TAB NG SCH (09:12)
[2017-02-11] MEDS: PANTOPRAZOLE 40 MG INJ VIAL IVP SCH (09:13)
[2017-02-11] MEDS: SODIUM PHOS / POTASSIUM PHOS 1 PKT PDR NG SCH ×3 (09:14→17:17)
[2017-02-11] MEDS: NACL 0.9% 1,000 ML IV SCH ×3 (09:49→20:27)
[2017-02-11] MEDS: LEVOFLOXACIN 750 MG/D5W PREMIX 150 ML IV SCH (10:01)
--- NOTE | 2017-02-11 10:05 | NUR ---
RESTING WELL NO EVIDENCE OF PULMONARY DISTRESS NOTED BREATH SOUNDS DIFFUSED RALES BILATERAL WITH GOOD CHEST RISE NO SUCTIONING AT THIS TIME SENIOR STORAGE ENGINEER TO MONITOR FAMILY AT BEDSIDE
--- NOTE | 2017-02-11 11:42 | NUR ---
RESTING COMFORTABLY NO SOB NOTED BREATH SOUNDS CLEAR BILATERAL WITH GOOD CHEST RISE
--- NOTE | 2017-02-11 12:44 | NUR ---
PT SEEN BY DR MUHAMMAD. ORDER TO PUT PT ON SEDATION VACATION. STOP PROPOFOL FOR 30 MINS AND RESTART AFTER 30 MINS.
--- NOTE | 2017-02-11 13:49 | NUR ---
SEDATED NO DISTRESS NOTED GOOD CHEST RISE AIRWAY PATENT SEDATION VACATION STARTED/TOPPED NOTED
[2017-02-11] MEDS: PROPOFOL 1000 MG/100 ML PREMIX 100 ML IV PRN (15:29)
--- NOTE | 2017-02-11 15:34 | NUR ---
SEDATED NO EVIDENCE OF PULMONARY DISTRESS NOTED BREATH SOUNDS CLEAR RIGHT SIDE CYNTHIA LML RALES LLL NO SUCTIONING AT THIS TIME EGG CANDLER TO MONITOR
--- NOTE | 2017-02-11 16:14 | NUR ---
ORAL CARE PROVIDED. PT RESTING IN BED COMFORTABLY. NO CHANGE IN LOC. WILL CONTINUE TO MONITOR.
--- NOTE | 2017-02-11 17:49 | NUR ---
PT RESTING IN BED COMFORTABLY. NO CHANGE IN LOC. ON CONTINUOUS MONITORING.
[2017-02-11] MEDS ORDERED: KCL 20 MEQ/WATER INJ PREMIX 200 ML IV ONE (17:55)
--- NOTE | 2017-02-11 18:15 | NUR ---
SEDATED NO EVIDENCE OF PULMONARY DISTRESS NOTED BREATH SOUNDS CLEAR RIGHT SIDE TO DIFFUSED RALES AT LEFT SIDE GOOD CHEST RISE ENDOTRACHEAL TUBE SUCTION FOR SCANT THIN YELLOW SECRETIONS AIRWAY PATENT
--- NOTE | 2017-02-11 18:40 | NUR ---
PARENTS AT BEDSIDE, WERE UPDATED ON PT.
--- NOTE | 2017-02-11 19:15 | NUR ---
REPORT RECEIVED FROM MORNING NURSE, DARRIN. PT SEDATED WITH PROPOFOL @ 20 MCG/KG/MIN WITH RASS -4. PERRL. CENTRAL LINE WITH TRIPLE LUMEN TO RIJ. ASYMPTOMATIC AND PATENT. SALINE LOCK TO RFA 18G AND LEFT AC 18G. ASYMPTOMATIC AND PATENT. OGT TO TUBE FEEDING. OGT IN PLACE AND RESIDUAL NOTED ZERO. ETT TO VENT AC 14, FIO2 45, TV 500, PEEP 5. BILATERAL LOWER LUNG SOUNDS DIMINISHED. S1 AND S2 HEARD WITH NO ABNORMAL HEART SOUNDS. BOWEL SOUNDS HEARD FROM ALL QUADS. SCD TO BILATERAL LOWER EXTREMITIES. FLACC=0. VANEGAS CATHETER DRAINING CLEAR YELLOW URINE VIA GRAVITY. CONTINUING WITH CARDIAC MONITORING AND NO ACUTE DISTRESS NOTED. CALL LIGHT IN REACH. BED KEPT TO THE LOWEST. HOB ELEVATED TO 30 DEGREES. PARENTS ARE BED SIDE AT THIS TIME. WILL CONTINUE TO MONITOR.
--- NOTE | 2017-02-11 19:21 | NUR ---
REPORT GIVEN TO REMOTELY OPERATED VEHICLE RN FOR CONTINUITY OF CARE. PT IS IN STABLE CONDITION.
--- NOTE | 2017-02-11 20:10 | NUR ---
RECEIVED PT STABLE ON VENT SUPPORT AT DOCUMENTED SETTINGS, SXN SCANT CLEAR THIN SECRETIONS, HHN TX GIVEN, TOLERATED WELL, NO RESP DISTRESS OR SOB NOTED, 7.5 ETT SECURED AT 24 CM AT LIP, ALARMS SET AND AUDIBLE, VENT PLUGGED INTO RED OUTLET, AMBU BAG AT BEDSIDE, WILL CONTINUE TO MONITOR.
[2017-02-11] MEDS: IPRATROPIUM 0.02% 0.5 MG/2.5 ML NEBU INH PRN (20:12)
[2017-02-12] VITALS (62 sets, daily range): BP systolic 69–151; BP diastolic 6–95
--- NOTE | 2017-02-12 | NUR ---
CONTINUING WITH PROPOFOL DRIP WITH SAME VENT SETTING. NO ACUTE DISTRESS NOTED. ALL SAFETY PRECAUTIONS ARE IN PLACE. WILL CONTINUE TO MONITOR.
[2017-02-12] MEDS: ALBUTEROL 0.083% 2.5 MG/3 ML NEBU INH SCH ×5 (02:56→19:17)
--- NOTE | 2017-02-12 03:35 | NUR ---
PT WITH NO ACUTE DISTRESS NOTED. CONTINUING WITH PROPOFOL DRIP AND CVP=6. ST ON MONITOR. ALL SAFETY PRECAUTIONS ARE IN PLACE. WILL CONTINUE TO MONITOR.
[2017-02-12] MEDS: PROPOFOL 1000 MG/100 ML PREMIX 100 ML IV PRN (04:12)
[2017-02-12 05:12] LABS: BASOPHILS # (AUTO) 0.1 K/uL (0.00-0.22); BASOPHILS % (AUTO) 0.9 % (0.0-2.0); EOSINOPHILS % (AUTO) 0.4 % (0.0-4.0); HEMATOCRIT 29.6 % (36-52); LYMPHOCYTES # (AUTO) 1.4 K/uL (2.0-11.5); LYMPHOCYTES % (AUTO) 14.2 % (20.5-51.1); MEAN CORPUSCULAR HEMOGLOBIN 32 pg (27-31); MEAN CORPUSCULAR HGB CONC 34 g/dL (33-37); MEAN CORPUSCULAR VOLUME 94 fL (80-94); MONOCYTES # (AUTO) 0.7 K/uL (0.8-1.0); MONOCYTES % (AUTO) 7.8 % (1.7-9.3); NEUTROPHILS # (AUTO) 7.4 K/uL (1.8-7.7); NEUTROPHILS % (AUTO) 76.7 % (42.2-75.2); PLATELET COUNT (AUTO) 138 K/uL (140-450); RED BLOOD CELL COUNT(AUTO) 3.16 MIL/uL (4.20-6.10); RED CELL DISTRIBUTION WIDTH 13.7 % (11.6-13.7); WHITE BLOOD COUNT (AUTO) 9.6 K/uL (4.8-10.8)
[2017-02-12] MEDS: NACL 0.9% 1,000 ML IV SCH ×3 (05:30→23:28)
--- NOTE | 2017-02-12 05:32 | NUR ---
RASS -5. DECREASED PROPOFOL TO 10 MCG/KG/MIN.
--- NOTE | 2017-02-12 05:40 | NUR ---
RASS -4 AT THIS TIME.
[2017-02-12] MEDS: LEVOTHYROXINE 0.05 MG TAB NG SCH (05:58)
[2017-02-12] MEDS: PIPER/TAZO 3.375GM/D5W PREMIX 50 ML IV SCH ×4 (05:58→23:28)
--- NOTE | 2017-02-12 06:05 | NUR ---
INCREASED PROPOFOL TO 20 MCG/KG/MIN DUE TO RASS +1.
--- NOTE | 2017-02-12 06:10 | NUR ---
RASS -4 AT THIS TIME.
[2017-02-12 06:37] LABS: ANION GAP 12.2 (8-16); CARBON DIOXIDE 26.7 mmol/L (21-32); CREATININE 0.6 mg/dL (0.7-1.3); POTASSIUM 3.9 mmol/L (3.5-5.1)
--- NOTE | 2017-02-12 06:37 | NUR ---
REC'D PT ON [employer] VENT SETTINGS AC14 VT 500 PEEP 5 FIO2 45% ALARMS ON AND FUNCTIONING PROPERLY, AMBU BAG AT SIDE OF VENT AND VENTILATOR IS PLUGGED INTO RED OUTLET, I\L TX GIVEN WITH ALBUTEROL 2.5MG WITH NO ADVERSE REACTION POST TX. B\S ARE RHONCHI BILATERALLY, SXN PT SMALL AMT OF THIN CLEAR SECRETIONS, PT IS ORALLY INTUBATED WITH 7.5 ET TUBE SECURED WITH ANCHOR FAST AT 24 CM AT THE LEFT CORNER OF MOUTH AND SKIN INTEGRITY IS INTACT AND CUFF PRESSURE IS 21 CM H2O
[2017-02-12 06:46] LABS: MAGNESIUM 1.9 mg/dL (1.8-2.4); PHOSPHORUS 2.2 mg/dL (2.5-4.9)
--- NOTE | 2017-02-12 07:15 | NUR ---
REPORT RECEIVED FROM DEPUTY TREASURER NURSEBOBBI.RN. PT SEDATED WITH PROPOFOL @ 20 MCG/KG/MIN WITH RASS -4. CENTRAL LINE WITH X3 LUMENS TO RIJ. INTACT AND PATENT. SALINE LOCK TO RFA 18G AND LEFT AC 18G. ASYMPTOMATIC AND PATENT. OGT FOR TUBE FEEDING. OGT IN PLACE AND NO RESIDUAL NOTED. CONTINUOS NUTREN 40ML/HR FEEDING, H2O FLUSH 50ML Q4HR PUMP SETTING. ETT TO VENT AC RATE 14, FIO2 45, TV 500, PEEP 5. BILATERAL LUNG SOUNDS DIMINISHED. PRODUCTIVE COUGHING WITH SMALL AMOUNT OF WHITE SECRETION SUCTIONED. SR NOTED FROM [employer] ARCHITECT. BOWEL SOUNDS HEARD FROM ALL FOUR QUADS. SCD IN PLACE TO BILATERAL LOWER EXTREMITIES. FLACC=0. 16 FR VANEGAS CATHETER IN PLACE, DRAINING CLEAR YELLOW URINE VIA GRAVITY. NO ACUTE DISTRESS NOTED. CALL LIGHT IN REACH. BED KEPT TO THE LOWEST POSITION. HOB ELEVATED TO 30 DEGREES. WILL CONTINUE TO MONITOR.
--- NOTE | 2017-02-12 07:27 | NUR ---
REPORT GIVEN TO MORNING NURSE FOR CONTINUITY OF CARE. VS STABLE.
--- NOTE | 2017-02-12 08:00 | NUR ---
SEEN BY DR. SAINZ AND HIS TEAM .WILL HAVE ORDER LATHER.
[2017-02-12] MEDS ORDERED: MORPHINE SULFATE 2 MG/ML SYR IVP PRN (08:25)
[2017-02-12] MEDS ORDERED: LORazepam 50 MG in NACL 0.9% 25 ML IV PRN (08:25)
--- NOTE | 2017-02-12 08:29 | NUR ---
DR RUBIO D/C PROPOFOL AND START ATTIVAN IV DRIP TO TITRATE.
--- NOTE | 2017-02-12 08:45 | NUR ---
PHAMACY INFORM THAT WE HAVE SHORTAGE OF ATIVAN, PAGE DR. RUBIO
--- NOTE | 2017-02-12 08:46 | NUR ---
SEEN BY DR. MUHAMMAD WOULD LIKE TO KEEP PT SEDATE UNTIL TOMORROW WILL EXTUBATE HIM IF PT. CONDITION WITH IN NORMAL LIMIT.
--- NOTE | 2017-02-12 08:54 | NUR ---
VENT CHECK, NO SXN REQUIRED AT THIS TIME, DR. MUHAMMAD AT BEDSIDE ASKED THAT PT BE PLACED ON CPAP 5 PS 10 PT DOING GOOD FAMILY AT BEDSIDE AFTER ONE HOUR CALL WITH WEANING PLAN TO DR. MUHAMMAD
[2017-02-12] MEDS ORDERED: POTASSIUM PHOSPHATE 15 MM in NACL 0.9% 250 ML IV SCH (09:00)
--- NOTE | 2017-02-12 09:16 | NUR ---
PT PLACED BACK AC MODE AFTER 45MINUTES OF CPAP RR WENT TO 43
[2017-02-12] MEDS: CALCIUM CARBONATE 500 MG TAB PO SCH (09:24)
[2017-02-12] MEDS: PANTOPRAZOLE 40 MG INJ VIAL IVP SCH (09:24)
[2017-02-12] MEDS: DIVALPROEX 500 MG TABEC PO SCH ×2 (09:24→20:27)
[2017-02-12] MEDS: ATORVASTATIN 20 MG TAB NG SCH (09:25)
[2017-02-12] MEDS: BENAZEPRIL 5 MG TAB NG SCH (09:25)
[2017-02-12] MEDS: LACTOBACILLUS RHAMNOSUS GG 1 EACH CAP PO SCH (09:25)
[2017-02-12] MEDS: ALPRAZolam 0.5 MG TAB NG SCH ×2 (09:26→20:27)
[2017-02-12] MEDS: QUEtiapine FUMARATE 100 MG TAB NG SCH ×2 (09:26→20:26)
[2017-02-12] MEDS: SODIUM PHOS / POTASSIUM PHOS 1 PKT PDR NG SCH ×3 (09:27→18:01)
[2017-02-12] MEDS: OLANZapine 5 MG TAB NG SCH ×2 (09:29→20:28)
--- NOTE | 2017-02-12 10:00 | NUR ---
REPOSITION SUCTION HAS LOT OF THICK MUCOUS.
[2017-02-12] MEDS: LEVOFLOXACIN 750 MG/D5W PREMIX 150 ML IV SCH (10:06)
--- NOTE | 2017-02-12 10:45 | NUR ---
VENT CHECK, SXN PT SMALL AMT OF CLEAR SECRETIONS, I\L TX GIVEN WITH ALBUTEROL 2.5MG WITH NO ADVERSE REACTION POST TX B\S ARE RHONCHI PT IS RESTING WITH NO SIGNS OF DISTRESS NOTED AT THIS TIME
--- NOTE | 2017-02-12 12:00 | NUR ---
REPOSITION ORAL CARE GIVEN OROL SUCTION HAS THICK WHITE MUCOUS.
--- NOTE | 2017-02-12 12:45 | NUR ---
VENT CHECK, NO SXN REQUIRED AT THIS TIME, B\S ARE RHONCHI AND AIRWAY IS PATENT PT IS RESTING
[2017-02-12] MEDS ORDERED: LORazepam 2 MG/ML VIAL IVP PRN (14:25)
--- NOTE | 2017-02-12 15:03 | NUR ---
VENT CHECK, I\L TX GIVEN WITH ALBUTEROL 2.5MG WITH NO ADVERSE REACTION POST TX B\S ARE RHONCHI AND SXN PT SMALL AMT OF CLEAR SECRETIONS, AND PT IS RESTING
--- NOTE | 2017-02-12 16:00 | NUR ---
REPOSITION ORAL CARE GIVEN NGT RESIDUAL CHECK HAS 10 ML RETURN FEEDING CONTINUE,
--- NOTE | 2017-02-12 17:20 | NUR ---
vent check, no sxn required at this time pt is resting airway is patent
[2017-02-12] MEDS: MORPHINE SULFATE 2 MG/ML SYR IVP PRN ×2 (18:33→22:20)
[2017-02-12] MEDS: IPRATROPIUM 0.02% 0.5 MG/2.5 ML NEBU INH PRN (19:17)
--- NOTE | 2017-02-12 19:20 | NUR ---
PT RESTING QUIETLY, REPORT GIVE TO BOBBI SANDOVAL.
--- NOTE | 2017-02-12 19:30 | NUR ---
REPORT RECEIVED FROM MORNING NURSE. PT IS OFF PROPOFOL AT THIS TIME. OPENS EYES. ETT TO VENT AC 14, FIO2 45, TV 500, PEEP 5. OGT IN PLACE AND ZERO RESIDUAL. BILATERAL UPPER LOBES LUNG SOUNDS WITH RONCHI AND LOWER LOBES DIMINISHED. BOWEL SOUNDS HEARD FROM ALL 4 QUADS. ON CONTINUOS CARDIAC MONITORING. ST ON THE MONITOR. NO FEVER. S1 AND S2 HEARD WITHOUT ABNORMAL HEART SOUNDS. PEDAL PULSE CHECKED AND CAPILLARY RETURN < 3 SEC. VANEGAS CATHETER DRAINING CLEAR YELLOW URINE VIA GRAVITY. SCD TO BILATERAL LOWER EXTREMITIES. NO ACUTE DISTRESS NOTED. CALL LIGHT IN REACH. BED KEPT TO THE LOWEST POSITION. HOB ELEVATED TO 30 DEGREES. WILL CONTINUE TO MONITOR. Addendum: 02/13/17 at 0017 by Vesna Pacheco RN CENTRAL LINE WITH TRIPLE LUMEN TO RIJ. CVP READING @8 AT THIS TIME. OTHER IV SITES TO RFA 18G AND LEFT AC 18G-SALINE LOCK & PATENT AND ASYMPTOMATIC.
[2017-02-12] MEDS: LACTULOSE 20 GM/30 ML UDC PO SCH (20:28)
--- NOTE | 2017-02-12 20:28 | NUR ---
VISIT BY HIS PARENT FROM [facility] [place] THEY TALK TO DR. MUHAMMAD Addendum: 02/12/17 at 2028 by Carin Catalan RN THE TIME OF VISIT IS 829,
--- NOTE | 2017-02-12 22:22 | NUR ---
PT NOTED TRYING TO PULL THE TUBES. RESISTANT TO REDIRECTION. MORPHINE IVP ADMINISTERED ORDERED. WILL CONTINUE TO MONITOR.
[2017-02-13] VITALS (33 sets, daily range): BP systolic 91–142; BP diastolic 56–116
--- NOTE | 2017-02-13 00:19 | NUR ---
CONTINUING TO MONITOR CARDIAC MONITORING. NO ACUTE DISTRESS NOTED. FLACC=0. WILL CONTINUE TO MONITOR.
[2017-02-13] MEDS: ALBUTEROL 0.083% 2.5 MG/3 ML NEBU INH SCH ×7 (00:24→23:21)
[2017-02-13] MEDS: IPRATROPIUM 0.02% 0.5 MG/2.5 ML NEBU INH PRN (00:25)
--- NOTE | 2017-02-13 02:49 | NUR ---
PT NOTED WITH MODERATE AMOUNT OF SOFT STOOL. ASSISTED WITH INCONTINENCE CARE.
--- NOTE | 2017-02-13 03:00 | NUR ---
RT UNABLE TO GIVE PATIENT 0300 HOURS TX BECAUSE HE RESPONDED TO RAPID RESPONSE ON THE FLOOR AND WAS HELPING GET PATIENT STABLIZED AND TRANSFER TO ICU.
--- NOTE | 2017-02-13 04:53 | NUR ---
EYES CLOSED. VS STABLE. CONTINUE TO BE ON CARDIAC MONITORING. NO ACUTE DISTRESS NOTED. FLACC=0. CVP=7. ALL SAFETY PRECAUTIONS ARE IN PLACE. WILL CONTINUE TO MONITOR.
[2017-02-13] MEDS: PIPER/TAZO 3.375GM/D5W PREMIX 50 ML IV SCH ×3 (05:18→18:04)
[2017-02-13] MEDS: LEVOTHYROXINE 0.05 MG TAB NG SCH (05:31)
[2017-02-13 05:36] LABS: ANION GAP 8.9 (8-16); CARBON DIOXIDE 28.8 mmol/L (21-32); CREATININE 0.6 mg/dL (0.7-1.3); POTASSIUM 3.7 mmol/L (3.5-5.1)
--- NOTE | 2017-02-13 05:44 | NUR ---
DR. GRANT IN TO SEE PT. WILL FOLLOW UP WITH ANY ORDERS.
[2017-02-13 05:55] LABS: PHOSPHORUS 3.3 mg/dL (2.5-4.9)
[2017-02-13] MEDS: MORPHINE SULFATE 2 MG/ML SYR IVP PRN ×5 (06:06→20:20)
--- NOTE | 2017-02-13 06:06 | NUR ---
PT TRIED TO REMOVE THE ETT AND OGT. RESISTANT TO REDIRECTION. INCREASED AGITATION NOTED. MORPHINE IVP ADMINISTERED ORDERED. WILL CONTINUE TO MONITOR.
[2017-02-13 06:07] LABS: BASOPHILS # (AUTO) 0.1 K/uL (0.00-0.22); HEMOGLOBIN 8.8 g/dL (12.0-18.0)
[2017-02-13 06:10] LABS: BASOPHILS % (AUTO) 2.1 % (0.0-2.0); EOSINOPHILS % (AUTO) 0.4 % (0.0-4.0); HEMATOCRIT 25.5 % (36-52); LYMPHOCYTES # (AUTO) 1.3 K/uL (2.0-11.5); LYMPHOCYTES % (AUTO) 22.4 % (20.5-51.1); MEAN CORPUSCULAR HEMOGLOBIN 32 pg (27-31); MEAN CORPUSCULAR HGB CONC 34 g/dL (33-37); MEAN CORPUSCULAR VOLUME 94 fL (80-94); MONOCYTES # (AUTO) 0.5 K/uL (0.8-1.0); MONOCYTES % (AUTO) 8.2 % (1.7-9.3); NEUTROPHILS # (AUTO) 4.1 K/uL (1.8-7.7); NEUTROPHILS % (AUTO) 66.9 % (42.2-75.2); PLATELET COUNT (AUTO) 150 K/uL (140-450); RED CELL DISTRIBUTION WIDTH 13.8 % (11.6-13.7)
--- NOTE | 2017-02-13 06:29 | NUR ---
PT CALM AT THIS TIME. CONTINUING WITH CARDIAC MONITORING. SAME VENT SETTING. NO ACUTE DISTRESS NOTED. CONTINUE TO MONITOR.
--- NOTE | 2017-02-13 06:49 | NUR ---
RCV'D PT INTUBATED WITH 7.5 ETT AT 24 CM AT LIP. ETT IN PLACE AND SECURED. VENT SETTINGS ARE AC 14,500,45%,+5. VENT IS CONNECTED TO RED OUTLET. ALARMS ARE AUDIBLE. AMBU BAG AT BEDSIDE. HHN TX OF ALB GIVEN. NO SOB OR DISTRESS NOTED. SXN'D SML AMT OF THIN WHITE SECRETIONS. WILL CONTINUE TO MONITOR.
--- NOTE | 2017-02-13 07:15 | NUR ---
PT ON CPAP TRIAL BY RT CHENG PER ORDERS. CPAP 5 PS 10. WILL CONTINUE TO MONITOR.
--- NOTE | 2017-02-13 07:26 | NUR ---
GAVE REPORT TO MORNING NURSE FOR CONTINUITY OF CARE. PT VS STABLE. NO ACUTE DISTRESS NOTED. ALL SAFETY PRECAUTIONS ARE IN PLACE.
--- NOTE | 2017-02-13 08:00 | NUR ---
INITIAL SHIFT ASSESSMENT DONE (SEE ASSESSMENT PART). OPENING EYES TO NAME CALLING, EYES TRACKING BUT NOT FOLLOWING COMMANDS. NO SIGNS OF PAIN. ON CPAP TRIAL AT THIS TIME, TOLERATING FAIRLY. O2 SAT 92-95%. SR ON MONITOR. SBP IN 110'S. NO ECTOPY NOTED. ON TUBE FEEDING, TOLERATING WELL. NO RESIDUALS NOTED. HOB ELEVATED. UPDATED OF PLAN OF CARE. WILL CONTINUE TO MONITOR.
--- NOTE | 2017-02-13 08:20 | NUR ---
PT HR INCREASED TO 129 RR 39 SPO2 92 %. PLACED PT BACK ON AC. PT IS MORE RELAXED. WILL CONTINUE TO MONITOR.
--- NOTE | 2017-02-13 08:38 | NUR ---
BECOMES RESTLESS AND TRYING TO PULL OUT ETT. GIVEN MORPHINE SULFATE 2 MG IVP AND PAGED RESIDENT DOCTOR.
--- NOTE | 2017-02-13 08:45 | NUR ---
BECOMES RESTLESS AT THIS TIME. INFORM RESIDENT DOCTOR, NEW ORDERS RECEIVE. PUT ON BILATERAL SOFT WRIST RESTRAINTS PER MD ORDER. WILL CONTINUE TO MONITOR.
[2017-02-13] MEDS: NACL 0.9% 1,000 ML IV SCH ×3 (08:48→19:30)
[2017-02-13] MEDS: PANTOPRAZOLE 40 MG INJ VIAL IVP SCH (09:08)
[2017-02-13] MEDS ORDERED: MIDAZOLAM MDV 50 MG in NACL 0.9% 40 ML IV PRN (09:09)
[2017-02-13] MEDS: ATORVASTATIN 20 MG TAB NG SCH (09:11)
[2017-02-13] MEDS: LACTOBACILLUS RHAMNOSUS GG 1 EACH CAP PO SCH (09:11)
[2017-02-13] MEDS: BENAZEPRIL 5 MG TAB NG SCH (09:12)
[2017-02-13] MEDS: ALPRAZolam 0.5 MG TAB NG SCH ×2 (09:12→20:19)
[2017-02-13] MEDS: QUEtiapine FUMARATE 100 MG TAB NG SCH ×2 (09:12→20:19)
[2017-02-13] MEDS: LACTULOSE 20 GM/30 ML UDC PO SCH ×2 (09:13→18:04)
[2017-02-13] MEDS: DIVALPROEX 500 MG TABEC PO SCH ×2 (09:13→20:19)
[2017-02-13] MEDS: OLANZapine 5 MG TAB NG SCH ×2 (09:19→20:19)
[2017-02-13] MEDS: MIDAZOLAM MDV 50 MG in NACL 0.9% 40 ML IV SCH (09:40)
--- NOTE | 2017-02-13 09:40 | NUR ---
STARTED VERSED DRIP AT 1 MG/HR PER MD ORDER. WILL CONTINUE TO MONITOR.
[2017-02-13] MEDS: LEVOFLOXACIN 750 MG/D5W PREMIX 150 ML IV SCH (09:48)
--- NOTE | 2017-02-13 10:00 | NUR ---
SLEEPING AT THIS TIME BUT EASILY AROUSABLE. OCCASIONAL AGITATION NOTED. NO SIGNS OF PAIN. TOLERATING VENTILATOR WELL. O2 SAT 93-95%. SR ON MONITOR. SBP IN 90'S-110'S. NO ECTOPY NOTED. HOB ELEVATED. WILL CONTINUE TO MONITOR.
--- NOTE | 2017-02-13 11:10 | NUR ---
BECOMES RESTLESS AT THIS TIME. VERSED DRIP INCREASE TO 2 MG/HR. WILL CONTINUE TO MONITOR.
--- NOTE | 2017-02-13 11:42 | NUR ---
VENT CHECK DONE. PT IS ASLEEP COMFORTABLY. NO SOB OR DISTRESS NOTED. HHN OF ALB GIVEN. WILL CONTINUE TO MONITOR.
--- NOTE | 2017-02-13 12:00 | NUR ---
REASSESSMENT DONE. NEURO STATUS UNCHANGED. NO SIGNS OF PAIN OR AGITATION NOTED. TOLERATING CURRENT VENTILATOR SETTINGS WELL. O2 SAT 94-96%. SR ON MONITOR. SBP IN 90'S-110'S. NO ECTOPY NOTED. TOLERATING TUBE FEEDING WELL. NO RESIDUALS NOTED. HOB ELEVATED. UPDATED OF PLAN OF CARE. WILL CONTINUE TO MONITOR.
--- NOTE | 2017-02-13 13:01 | NUR ---
BECOMES RESTLESS AT THIS TIME WHILE RT IS CHANGING THE ETT SHETTY. GIVEN MORPHINE SULFATE 2 MG IVP. WILL CONTINUE TO MONITOR.
--- NOTE | 2017-02-13 13:51 | NUR ---
02/13/17 RD FOLLOW UP COMPLETED PLEASE REFER TO NUTRITION PROGRESS NOTE UNDER CARE ACTIVITY FOR ESTIMATED NUTRITION NEEDS. 1. CONTINUE NUTRITION SUPPORT: NUTREN PULMONARY AT 40 ML/HR WITH 50 ML FREE WATER FLUSH Q4H VIA OGTUBE --NOTE THIS IS ONLY PROVIDING 78% OF ESTIMATED KCAL NEEDS AND 70% OF ESTIMATED PROTEIN NEEDS 2. RECOMMEND INCREASING TUBE FEEDING RATE TO 55 ML/HR TO PROVIDE 1320 ML TOTAL VOLUME, 1980 KCAL, 90 GM PROTEIN TO MEET >95% OF ESTIMATED KCAL AND PROTEIN NEEDS 3. SHOULD PT BE EXTUBATED CONSIDER SWALLOW EVALUATION --AND ADVANCE DIET TO REGULAR WITH APPROPRIATE TEXTURE MODIFICATIONS IF NEEDED. 4. RD TO FOLLOW-UP 2-3 DAYS, HIGH RISK KADEEM GREENBERG RD
--- NOTE | 2017-02-13 14:00 | NUR ---
RESTING IN BED. NO SIGNS OF PAIN OR AGITATION NOTED. TOLERATING VENTILATOR WELL. O2 SAT 94-96%. SR ON MONITOR. SBP IN 90'S-140'S. NO ECTOPY NOTED. HOB ELEVATED. WILL CONTINUE TO MONITOR.
--- NOTE | 2017-02-13 16:00 | NUR ---
REASSESSMENT DONE. NEURO STATUS STILL THE SAME. NO SIGNS OF PAIN. OCCASIONAL AGITATION NOTED. TOLERATING CURRENT VENTILATOR SETTINGS WELL. O2 SAT 96-97%. SR ON MONITOR. SBP IN 90'S-100'S. NO ECTOPY NOTED. TOLERATING TUBE FEEDING WELL. NO RESIDUALS NOTED. HOB ELEVATED. UPDATED OF PLAN OF CARE. WILL CONTINUE TO MONITOR.
--- NOTE | 2017-02-13 17:06 | NUR ---
BECOMES RESTLESS AT THIS TIME. GIVEN MORPHINE SULFATE 2 MG IVP. WILL CONTINUE TO MONITOR.
--- NOTE | 2017-02-13 18:00 | NUR ---
HAS BM AT THIS TIME, SMALL AMOUNT, PASTY, AND BROWN COLOR. GIVEN PARTIAL BATH AND LINENS ARE CHANGE. TOLERATED THE PROCEDURE WELL.
--- NOTE | 2017-02-13 19:05 | NUR ---
REPORT GIVEN TO INCOMING POLITICAL RESEARCH SCIENTIST RN, RN LIMA.
--- NOTE | 2017-02-13 19:10 | NUR ---
RECEIVED REPORT FROM AM NURSE AT BEDSIDE. PT IS SEDATED, PASS -3, ETT TO VENT WITH FIO2 45, TV 500, PEEP 5, CLEAR LUNG SOUNDS, OGT IN PLACE, POSITIVE PLACEMENT, FEEDING WITH NUTREN PULMONARY AT 40ML/HR, WITH 0 RESIDUAL. CENTRAL LINE ON RIGHT IJ WITH TLC, GOOD BLOOD RETURN ON EACH LUMEN, ON CVP AT 11, RUNNING WITH NS AT 130ML/HR AND VERCED AT 2MG/HR, ST ON TOLL MECHANIC, SOFT ABDOMEN WITH ACTIVE BOWEL SOUNDS, VANEGAS CATHETER IN PLACE WITH CLEAR YELLOW URINE VIA GRAVITY. RIGID TO ALL EXTREMITIES NOTED, SKIN IS INTACT, WARM AND DRY TO TOUCH. SAFETY PRECAUTION IN PLACE, HOB ELEVATED TO 30 DEGREES, ORAL CARE PROVIDED, POSITION CHANGED FOR OFF LOAD PRESSURE, WILL CONTINUE TO MONITOR.
--- NOTE | 2017-02-13 21:14 | NUR ---
VENT CHECKED. PT ASLEEP, BREATH SOUNDS CLEAR, NO SUCTIONING NEEDED AT THIS TIME. NO DISTRESS NOTED.
--- NOTE | 2017-02-13 22:00 | NUR ---
PT IS ASLEEP, NO S/S OF DISTRESS, VSS. POSITION CHANGED FOR OFF LOAD PRESSURE.
--- NOTE | 2017-02-13 23:22 | NUR ---
VENT CHECKED. PT ASLEEP, BREATH SOUNDS CLEAR, INLINE TX GIVEN ORDERED. NO ADVERSE EFFECTS NOTED.
[2017-02-14] VITALS (35 sets, daily range): BP systolic 89–164; BP diastolic 53–98
--- NOTE | 2017-02-14 | NUR ---
NO CHANGE OF CONDITION AT THIS TIME, ORAL CARE PROVIDED, POSITION CHANGED FOR OFF LOAD PRESSURE, VSS.
--- NOTE | 2017-02-14 02:00 | NUR ---
NO CHANGE OF CONDITION AT THIS TIME, VSS, POSITION CHANGED FOR OFF LOAD PRESSURE.
--- NOTE | 2017-02-14 02:06 | NUR ---
VENT CHECKED. PT ASLEEP, BREATH SOUNDS CLEAR, NO SUCTIONING DONE AT THIS TIME. NO DISTRESS NOTED.
[2017-02-14] MEDS: MIDAZOLAM MDV 50 MG in NACL 0.9% 40 ML IV SCH ×2 (03:09→17:03)
[2017-02-14] MEDS: MORPHINE SULFATE 2 MG/ML SYR IVP PRN ×3 (03:17→20:52)
[2017-02-14] MEDS: ALBUTEROL 0.083% 2.5 MG/3 ML NEBU INH SCH ×6 (03:53→23:38)
--- NOTE | 2017-02-14 03:54 | NUR ---
VENT CHECKED. PT ASLEEP, BREATH SOUNDS CLEAR, INLINE TX GIVEN. HME CHANGED. NO ADVERSE EFFECTS NOTED.
--- NOTE | 2017-02-14 04:00 | NUR ---
AM CARE AND VANEGAS CATHETER CARE PROVIDED, ORAL CARE PROVIDED, POSITION CHANGED FOR OFF LOAD PRESSURE, PT TOLERATED WELL.
--- NOTE | 2017-02-14 05:24 | NUR ---
VENT CHECKED. PT ASLEEP, NO DISTRESS NOTED.
[2017-02-14] MEDS: NACL 0.9% 1,000 ML IV SCH ×3 (05:26→20:54)
--- NOTE | 2017-02-14 06:00 | NUR ---
NO S/S OF DISTRESS, VSS, POSITION CHANGED FOR OFF LOAD PRESSURE.
[2017-02-14] MEDS: PIPER/TAZO 3.375GM/D5W PREMIX 50 ML IV SCH ×4 (06:09→17:04)
[2017-02-14 06:18] LABS: BASOPHILS # (AUTO) 0.2 K/uL (0.00-0.22); BASOPHILS % (AUTO) 2.2 % (0.0-2.0); EOSINOPHILS # (AUTO) 0.1 K/uL (0-0.4); EOSINOPHILS % (AUTO) 0.9 % (0.0-4.0); HEMATOCRIT 25.8 % (36-52); HEMOGLOBIN 8.6 g/dL (12.0-18.0); LYMPHOCYTES # (AUTO) 1.5 K/uL (2.0-11.5); LYMPHOCYTES % (AUTO) 18.7 % (20.5-51.1); MEAN CORPUSCULAR HEMOGLOBIN 31 pg (27-31); MEAN CORPUSCULAR HGB CONC 33 g/dL (33-37); MEAN CORPUSCULAR VOLUME 95 fL (80-94); MONOCYTES # (AUTO) 0.7 K/uL (0.8-1.0); MONOCYTES % (AUTO) 9.2 % (1.7-9.3); NEUTROPHILS # (AUTO) 5.6 K/uL (1.8-7.7); PLATELET COUNT (AUTO) 187 K/uL (140-450); RED BLOOD CELL COUNT(AUTO) 2.73 MIL/uL (4.20-6.10); RED CELL DISTRIBUTION WIDTH 13.7 % (11.6-13.7)
[2017-02-14 06:35] LABS: MAGNESIUM 1.6 mg/dL (1.8-2.4); PHOSPHORUS 3.7 mg/dL (2.5-4.9)
[2017-02-14] MEDS: LEVOTHYROXINE 0.05 MG TAB NG SCH (06:36)
[2017-02-14 06:40] LABS: WHITE BLOOD COUNT (AUTO) 8.1 K/uL (4.8-10.8)
[2017-02-14] MEDS: IPRATROPIUM 0.02% 0.5 MG/2.5 ML NEBU INH PRN ×3 (07:10→23:37)
--- NOTE | 2017-02-14 07:28 | NUR ---
REPORT GIVEN TO JAIME ERICKSON AT BEDSIDE FOR CONTINUE OF CARE, PT IS IN STABLE CONDITION AT THIS TIME.
--- NOTE | 2017-02-14 07:30 | NUR ---
RECEIVED REPORT FROM JAIME AMATO. PT RECEIVED AWAKE AND ALERT TO SELF ONLY. HX OF MENTAL RETARDATION. UNABLE TO EXPRESS NEEDS. FLACC 0. NO S/SX OF SOB. BILATERAL PERRL OBSERVED. ETT TO VENT. TOLERATING WELL. LUNGS COARSE AND RHOCHI THROUGHOUT. ST ON MONITOR. WILL CONTINUE TO MONITOR. SKIN INTACT, WARM, DRY. L AC 18 GAUGE OBSERVED. INTACT AND PATENT. R FA 18 GAUGE OBSERVED. INTACT AND PATENT. RIJ OBSERVED. INTACT AND PATENT. INFUSING VERSED DRIP ORDERED. PT TOLERATED WELL. NO S/SX OF AGITATION NOTED. CVP MONITORING CONTINUED. TOLERATING WELL. OGT OBSERVED. POSITIVE AUSCULTATION. 0 RESIDUAL NOTED. CONTINUING TUBE FEEDING ORDERED. BOWEL SOUND PRESENT X 4 QUADRANT. ABDOMEN SOFT, NONTENDER. VANEGAS CATHETER IN PLACE. DRAINING CLEAR, YELLOW URINE. WILL CONTINUE TO MONITOR.
--- NOTE | 2017-02-14 07:46 | NUR ---
RECEIVED PT STABLE ON VENT SUPPORT AT DOCUMENTED SETTINGS, SXN SMALL THICK CLEAR SECRETIONS, HHN TX GIVEN, TOLERATED WELL, NO RESP DISTRESS OR SOB NOTED, 7.5 ETT SECURED AT 24 CM AT THE LIP, ALARMS SET AND AUDIBLE, AMBU BAG AT BEDSIDE, VENT PLUGGED INTO RED OUTLET, WILL CONTINUE TO MONITOR.
--- NOTE | 2017-02-14 07:57 | NUR ---
ATTEMPTED TO ZERO CVP LINE. PORT OBSERVED TO BE CLOTTED. NOW READING CVP VALUES FROM PROXIMAL TUBE RATHER THAN DISTAL TUBE. RESIDENT NOTIFIED OF CLOGGED PORT AND CHANGE OF PORT. PER MD, OKAY TO RESUME CVP READING FROM PROXIMAL PORT AND NOW AWAITING FURTHER ORDERS FOR CLOGGED PORT.
--- NOTE | 2017-02-14 08:00 | NUR ---
PT OBSERVED TO BE AWAKE AND AGITATED. ATTEMPTING TO PULL OUT TUBE. TITRATING VERSED APPROPRIATE. SEE IV SPREADSHEET.
[2017-02-14 08:08] LABS: ANION GAP 12.5 (8-16); CARBON DIOXIDE 28.4 mmol/L (21-32); CREATININE 0.7 mg/dL (0.7-1.3); POTASSIUM 3.9 mmol/L (3.5-5.1)
[2017-02-14] MEDS ORDERED: ALTEPLASE 2 MG VIAL MC SCH (08:15)
[2017-02-14] MEDS: DIVALPROEX 500 MG TABEC PO SCH ×2 (08:28→20:53)
[2017-02-14] MEDS: PANTOPRAZOLE 40 MG INJ VIAL IVP SCH (08:28)
[2017-02-14] MEDS: LACTULOSE 20 GM/30 ML UDC PO SCH ×3 (08:29→16:07)
[2017-02-14] MEDS: ALPRAZolam 0.5 MG TAB NG SCH ×2 (08:29→20:53)
[2017-02-14] MEDS: ATORVASTATIN 20 MG TAB NG SCH (08:29)
[2017-02-14] MEDS: QUEtiapine FUMARATE 100 MG TAB NG SCH ×2 (08:29→20:53)
[2017-02-14] MEDS: OLANZapine 5 MG TAB NG SCH ×2 (08:30→20:53)
[2017-02-14] MEDS: BENAZEPRIL 5 MG TAB NG SCH (08:30)
--- NOTE | 2017-02-14 08:30 | NUR ---
0 RESIDUAL IN OGT. MEDICATION ADMINISTERED ORDERED. TOLERATED WELL.
--- NOTE | 2017-02-14 09:00 | NUR ---
MORPHINE GIVEN FOR FLACC 9. TOLERATED WELL. ADMINISTERED MORPHINE 2MG IVP. UNABLE TO DOCUMENT ON EMAR D/T MD INCREASING DOSAGE WHILE I WAS FLUSHING AND HOLDING PT'S ARM DOWN D/T PT STILL AGITATED. WILL TITRATE VERSED APPROPRIATE.
[2017-02-14] MEDS: LACTOBACILLUS RHAMNOSUS GG 1 EACH CAP PO SCH (09:16)
[2017-02-14] MEDS: LEVOFLOXACIN 750 MG/D5W PREMIX 150 ML IV SCH (09:16)
--- NOTE | 2017-02-14 09:37 | NUR ---
PT SLEEPING IN BED. CALM. WILL CONTINUE TO MONITOR.
--- NOTE | 2017-02-14 10:35 | NUR ---
AT BEDSIDE TO SEE PT. WILL F/U WITH NEW ORDERS.
--- NOTE | 2017-02-14 11:00 | NUR ---
PT SLEEPING IN BED. NO S/SX OF ACUTE DISTRESS NOTED. FLACC 0. WILL CONTINUE TO MONITOR FOR CHANGES.
--- NOTE | 2017-02-14 12:00 | NUR ---
PT AWAKE AND ORIENTED TO SELF ONLY. NO S/SX OF ACUTE DISTRESS NOTED. FLACC 0. WILL CONTINUE TO MONITOR FOR CHANGES.
--- NOTE | 2017-02-14 13:00 | NUR ---
PT SLEEPING IN BED. NO S/SX OF ACUTE DISTRESS NOTED. FLACC 0. WILL CONTINUE TO MONITOR FOR CHANGES.
--- NOTE | 2017-02-14 14:00 | NUR ---
PT SLEEPING IN BED. NO S/SX OF ACUTE DISTRESS NOTED. FLACC 0. WILL CONTINUE TO MONITOR FOR CHANGES.
--- NOTE | 2017-02-14 15:00 | NUR ---
PT SLEEPING IN BED. NO S/SX OF ACUTE DISTRESS NOTED. FLACC 0. WILL CONTINUE TO MONITOR FOR CHANGES.
--- NOTE | 2017-02-14 16:00 | NUR ---
PT SLEEPING IN BED. NO S/SX OF ACUTE DISTRESS NOTED. FLACC 0. WILL CONTINUE TO MONITOR FOR CHANGES.
--- NOTE | 2017-02-14 17:04 | NUR ---
PT OBSERVED TO BE TACHYCARDIC AND HAVE ELEVATED BP. PT IS MOVING ARMS AND SQUIRMING. PAIN MEDICATION ADMINISTERED ORDERED.
[2017-02-14] MEDS ORDERED: MAG SULF 2000 MG/WATER PREMIX 50 ML IV SCH (17:35)
--- NOTE | 2017-02-14 19:10 | NUR ---
RECEIVED REPORT FROM JAIME ERICKSON AT BEDSIDE. PT IS SEDATED, PASS -3, ETT TO VENT WITH FIO2 45, TV 500, PEEP 5, CLEAR LUNG SOUNDS, OGT IN PLACE, POSITIVE PLACEMENT, FEEDING WITH NUTREN PULMONARY AT 40ML/HR, WITH 0 RESIDUAL. CENTRAL LINE ON RIGHT IJ WITH TLC, ON CVP, CLOTED, MD AWARE PER REPORT, RUNNING WITH NS AT 130ML/HR AND VERCED AT 3MG/HR, ST ON LASER SYSTEMS ENGINEER, SOFT ABDOMEN WITH ACTIVE BOWEL SOUNDS, VANEGAS CATHETER IN PLACE WITH CLEAR YELLOW URINE VIA GRAVITY. RIGID TO ALL EXTREMITIES NOTED, SKIN IS INTACT, WARM AND DRY TO TOUCH. VSS, FLACC O. SAFETY PRECAUTION IN PLACE, HOB ELEVATED TO 30 DEGREES, ORAL CARE PROVIDED, POSITION CHANGED FOR OFF LOAD PRESSURE, WILL CONTINUE TO MONITOR.
--- NOTE | 2017-02-14 19:25 | NUR ---
RECEIVED PT ON THE SAME VENT SETTING, MED NEB IN LINE, SX SMALL AMOUNT OF CROCKETT THIN SECRETION, NO DISTRESS NOTED, VITALS STABLE.
--- NOTE | 2017-02-14 22:00 | NUR ---
NO CHANGE OF CONDITION AT THIS TIME, VSS, POSITION CHANGED FOR OFF LOAD PRESSURE, SUCTION PROVIDED.
[2017-02-15] VITALS (43 sets, daily range): BP systolic 98–166; BP diastolic 59–96
--- NOTE | 2017-02-15 | NUR ---
NO S/S OF DISTRESS, VSS, ORAL CARE PROVIDED, POSITION CHANGED FOR OFF LOAD PRESSURE.
[2017-02-15] MEDS: MORPHINE SULFATE 2 MG/ML SYR IVP PRN ×3 (01:07→23:50)
--- NOTE | 2017-02-15 01:30 | NUR ---
VENT CK DONE, AND CHANGED HME, RETAPE PT AT 24 CM AT THE LIP, INCREASED FLOW TO 75 DUE TO LOW VT
[2017-02-15] MEDS: NACL 0.9% 1,000 ML IV SCH ×3 (03:00→20:00)
[2017-02-15] MEDS: ALBUTEROL 0.083% 2.5 MG/3 ML NEBU INH SCH ×6 (03:33→22:47)
[2017-02-15] MEDS: IPRATROPIUM 0.02% 0.5 MG/2.5 ML NEBU INH PRN (03:34)
[2017-02-15 05:10] LABS: BASOPHILS # (AUTO) 0.2 K/uL (0.00-0.22); BASOPHILS % (AUTO) 2.1 % (0.0-2.0); EOSINOPHILS # (AUTO) 0.1 K/uL (0-0.4); EOSINOPHILS % (AUTO) 1.3 % (0.0-4.0); HEMATOCRIT 29.6 % (36-52); HEMOGLOBIN 9.8 g/dL (12.0-18.0); LYMPHOCYTES # (AUTO) 1.4 K/uL (2.0-11.5); LYMPHOCYTES % (AUTO) 17.1 % (20.5-51.1); MEAN CORPUSCULAR HEMOGLOBIN 31 pg (27-31); MEAN CORPUSCULAR HGB CONC 33 g/dL (33-37); MEAN CORPUSCULAR VOLUME 94 fL (80-94); MONOCYTES # (AUTO) 0.8 K/uL (0.8-1.0); MONOCYTES % (AUTO) 9.6 % (1.7-9.3); NEUTROPHILS # (AUTO) 5.6 K/uL (1.8-7.7); NEUTROPHILS % (AUTO) 69.9 % (42.2-75.2); PLATELET COUNT (AUTO) 305 K/uL (140-450); RED BLOOD CELL COUNT(AUTO) 3.15 MIL/uL (4.20-6.10); RED CELL DISTRIBUTION WIDTH 13.4 % (11.6-13.7)
[2017-02-15 05:56] LABS: ANION GAP 11.8 (8-16); CARBON DIOXIDE 28.8 mmol/L (21-32); CREATININE 0.5 mg/dL (0.7-1.3); POTASSIUM 3.6 mmol/L (3.5-5.1)
[2017-02-15 06:33] LABS: WHITE BLOOD COUNT (AUTO) 8.1 K/uL (4.8-10.8)
[2017-02-15] MEDS: LEVOTHYROXINE 0.05 MG TAB NG SCH (06:37)
--- NOTE | 2017-02-15 07:30 | NUR ---
RECEIVED REPORT FROM JAIME AMATO. PT OPENS EYES UNABLE TO FOLLOW COMMANDS. HX OF MENTAL RETARDATION. FLACC 0. NO S/SX OF SOB. BILATERAL PERRL OBSERVED. ETT TO VENT. TOLERATING WELL. LUNGS RHOCHI THROUGHOUT. ST ON MONITOR. SKIN INTACT, WARM, DRY. L AC 18 AND R FA 18 GAUGE OBSERVED. INTACT AND PATENT. RIJ INFUSING VERSED DRIP ORDERED AT 3 ML/HR. PT TOLERATED WELL. NO S/SX OF AGITATION NOTED. CVP MONITORING CONTINUED. TOLERATING WELL. OGT RUNNING NUTREN PULMONARY AT 40 ML/HR . 0 RESIDUAL NOTED. BOWEL SOUND PRESENT X 4 QUADRANT. ABDOMEN SOFT, NONTENDER. VANEGAS CATHETER IN PLACE. DRAINING BLOODY URINE . HOB ELEVATED 30 DEGREES WITH LOW BED POSITION. WILL CONTINUE TO MONITOR.
--- NOTE | 2017-02-15 07:36 | NUR ---
REPORT GIVEN TO JAIME RODRIGUEZ AT BEDSIDE FOR CONTINUE OF CARE, PT IS IN STABLE CONDITION.
--- NOTE | 2017-02-15 07:52 | NUR ---
LOC AWAKE AND COMBATIVE PULLING ON ENDOTRACHEAL TUBE REINSERTED TUBE TO 24cm FRANCHESKA/RN AND MICHAEL/RN AT BEDSIDE AND AWARE
--- NOTE | 2017-02-15 08:30 | NUR ---
CALL BY JAIME PRITCHARD THAT PATIENT IS O2 IS DESATURATING TO 87%, PLACED ON 100% NRM AND SUCTION VIA YANKAUER ORALLY SINCE PATIENT HAS UPPER AIRWAY RHONCHI, SAO2 INCREASE TO 91% AND GAVE REPORT TO SALIMA TO F/U
[2017-02-15] MEDS: ALPRAZolam 0.5 MG TAB NG SCH ×2 (08:39→21:00)
[2017-02-15] MEDS: BENAZEPRIL 5 MG TAB NG SCH (08:39)
[2017-02-15] MEDS: PANTOPRAZOLE 40 MG INJ VIAL IVP SCH (08:40)
[2017-02-15] MEDS: LACTOBACILLUS RHAMNOSUS GG 1 EACH CAP PO SCH (08:40)
[2017-02-15] MEDS: ATORVASTATIN 20 MG TAB NG SCH (08:40)
[2017-02-15] MEDS: QUEtiapine FUMARATE 100 MG TAB NG SCH ×2 (08:40→21:00)
[2017-02-15] MEDS: OLANZapine 5 MG TAB NG SCH ×2 (08:41→21:00)
[2017-02-15] MEDS: DIVALPROEX 500 MG TABEC PO SCH ×2 (08:41→21:00)
[2017-02-15] MEDS: LACTULOSE 20 GM/30 ML UDC PO SCH ×3 (10:20→17:00)
[2017-02-15] MEDS: LEVOFLOXACIN 750 MG/D5W PREMIX 150 ML IV SCH (10:20)
[2017-02-15 12:24] LABS: T4 (THYROXINE) 4.6 ug/dL (4.5-12.0)
--- NOTE | 2017-02-15 13:36 | NUR ---
ASLEEP TOLERATING WEANING PROCEDURE WELL WITHOUT PULMONARY DISTRESS NOTED BREATH SOUNDS RHONCHI BILATERAL WITH GOOD CHEST RISE ENDOTRACHEAL SUCTION FOR SMALL THIN YELLOW SECRETIONS AIRWAY PATENT
--- NOTE | 2017-02-15 13:45 | NUR ---
ABG DONE PUNCTURE SITE RIGHT RADIAL TOLERATED WELL WITHOUT ADVERSE REACTIONS NOTED
--- NOTE | 2017-02-15 13:55 | NUR ---
PAGED DR. GUERLINE MUHAMMAD [phone] TO REVIEW ABG REPORT
--- NOTE | 2017-02-15 14:07 | NUR ---
REPAGED DR. GUERLINE MAHER [phone] TO REVIEW ABG REPORT
--- NOTE | 2017-02-15 14:14 | NUR ---
CALL BACK FROM DR.OWAIS MUHAMMAD REVIEWED ABG REPORT OK TO EXTUBATE IF PATIENT DOES NOT TOLERATE OFF VENTILATOR OK TO REINTUBATE
--- NOTE | 2017-02-15 14:30 | NUR ---
REVIEWED ABG REPORT WITH DR. ALIYAH GRANT ALONG WITH CONVERSATION WITH DR. GUERLINE MUHAMMAD PREVIOUSLY NOTED DR. DEBI GRANT TO ENTER [facility] ORDER FOR EXTUBATION
--- NOTE | 2017-02-15 14:47 | NUR ---
02/15/17 RD FOLLOW UP ASSESSMENT COMPLETED. PLEASE REFER TO NUTRITION PROGRESS NOTES UNDER CARE ACTIVITY FOR ESTIMATED NUTRITIONAL NEEDS. RD RECOMMENDATIONS: 1. CONTINUE NUTRITION SUPPORT: NUTREN PULMONARY AT 40 ML/HR WITH 50 ML FREE WATER FLUSH Q4H VIA OGTUBE (THERE IS A PLAN TO TRY TO EXTUBATE PT AGAIN SOON) --NOTE THIS IS ONLY PROVIDING 78% OF ESTIMATED KCAL NEEDS AND 70% OF ESTIMATED PROTEIN NEEDS --CONSIDER INCREASING TUBE FEEDING RATE TO 55 ML/HR TO PROVIDE 1320 ML TOTAL VOLUME, 1980 KCAL, 90 GM PROTEIN TO MEET >95% OF ESTIMATED KCAL AND PROTEIN NEEDS; IF PT IS NOT WEANED OFF VENTILATOR 2. SHOULD PT BE EXTUBATED CONSIDER SWALLOW EVALUATION --AND ADVANCE DIET TO REGULAR WITH APPROPRIATE TEXTURE MODIFICATIONS IF NEEDED. 3. RD TO FOLLOW-UP 2-3 DAYS, HIGH RISK JAGJIT ANDERSON MBA, RD
--- NOTE | 2017-02-15 14:48 | NUR ---
EDUCATED PATIENT ON EXTUBATION PROCEDURE ENDOTRACHEAL SUCTION FOR SMALL THIN PALE YELLOW SECRETIONS OROPHARYNX SUCTION FOR MODERATE THIN CLEAR SECRETIONS INITIATED 100% FIO2 ON VENTILATOR X 1 MIN DELFLATED CUFF PRESSURE TO ZERO/PLANNING MANAGER BALLOON FLAT REQUEST PATIENT TO TAKE A DEEP BREATH ENDOTRACHEAL TUBE REMOVED OROPHARYNX SUCTION FOR SMALL CLEAR SECRETIONS PLACED ON SUPPLEMENTAL OXYGEN AT 40%/10 LPM VIA COOL AEROSOL TO MASK FRANCHESKA/RN AT BEDSIDE
--- NOTE | 2017-02-15 15:57 | NUR ---
LOC AWAKE AND RESPONSIVE STABLE NO EVIDENCE OF PULMONARY DISTRESS NOTED GOOD CSTRONG COUGH OROPHARYNX SUCTION FOR MODERATE THIN YELLOW TO CLEAR SECRETIONS
--- NOTE | 2017-02-15 17:05 | NUR ---
CHANGE OXYGEN DEVICE TO A NASAL CANNULA WITH SUPPLEMENTAL HUMIDIFIED OXYGEN AT 5 LPM MICHAEL/RN NOTIFIED
--- NOTE | 2017-02-15 17:33 | NUR ---
NOTIFIED DR. GRANT PT ACCIDENTLY PULLED OUT OGT.
--- NOTE | 2017-02-15 18:22 | NUR ---
NOTIFIED DR. PARR PT KEEPS COUGHING AT THIS TIME, TURNED AND REPOSITIONED PT, CLEANED PT, CENTRAL LINE DRESSING CHANGED, O2 SATS DROPPED TO 85-87 %, NOTIFIED RT SKY.
--- NOTE | 2017-02-15 18:33 | NUR ---
PT COUGH CONTINUOUSLY DR PARR NOTIFIED GIVE MORPHINE ORDERED.
--- NOTE | 2017-02-15 18:40 | NUR ---
COUGH AND O2 SAT DOWN TO 83 CALL RT HAE COME AND CHRISTINA O2 TO 100% NON REBREATHING MASK.
--- NOTE | 2017-02-15 18:45 | NUR ---
INFORM ABOUT PT. CONDITION.
--- NOTE | 2017-02-15 19:15 | NUR ---
REPORT GIVEN TO MECHANICAL ASSEMBLY TECHNICIAN RN. PT VITALS STABLE AT THIS TIME.
--- NOTE | 2017-02-15 19:30 | NUR ---
RECEIVED PT FROM MICHAEL SANDOVAL AM SHIFT, PT IS AWAKE,ALERT X2, FOLLOW SIMPLE COMMANDS. O2 AT 100% VIA NON RE-BREATHING MASK.SPO2 97-98%. NO S/S OF RESP.DISTRESS,NO SOB AT THIS TIME. ST SHOW ON MONITOR. PER AM SHIFT PT IS EXTUBATED AT 1415 AND TOLERATING WELL,CENTRAL LINE RIJ WITH TRIPLE LUMEN.PER AM SHIFT CVP IS NOT WORKING AND MD AWARE. CONT IV NS AT 130CC/HR TO THE CENTRAL LINE VIKTORIA WELL. IV SALINE FLUSH TO LEFT AC NO 18 GAUGE AND RFA NO 18 GAUGE. ABD SOFT NON DISTENDED.POSITIVE BOWEL SOUND ALL QUADRANTS .SKIN IS INTACT.F/C INPLACE WITH HEMATURIA NOTED. PER AM SHIFT MD AWARE THE HEMATURIA. KEPT CLEAN AND DRY.CALL LIGHT IN REACH.
--- NOTE | 2017-02-15 20:00 | NUR ---
PER AM SHIFT PT PULLING OGT. ASK DR.BRITTANY PARR IF OK TO RE-INSERT OGT/NGT. PER MD OK TO RE INSERT OGT/NGT FOR MEDS ONLY AND NPO. ALSO AWARE THAT CVP IS NOT WORKING.
[2017-02-15] MEDS: guaiFENesin 600 MG TABER PO SCH (21:00)
--- NOTE | 2017-02-15 21:00 | NUR ---
DR.BRITTANY PARR MADE AWARE THAT UN ABLE TO RE-INSERT OGT /NGT. PER MD TO PUT PT ON NPO AT THIS TIME.
--- NOTE | 2017-02-15 22:00 | NUR ---
IV LINE TO LEFT AC AND RFA NOT WORKING,UNABLE TO FLUSH,AND BENDING .BOTH REMOVED.
--- NOTE | 2017-02-15 23:00 | NUR ---
NOTED PT COUGHING MORE FREQUENTLY, JOANN RT MADE AWARE. EXTRA BREATHING TX AND DEEP SUCTION GIVEN. TOLERATED WELL,CONT TO MONITOR CLOSELY.
--- NOTE | 2017-02-15 23:50 | NUR ---
MORPHINE 2MG IV PUSH GIVEN ORDER FOR PAIN NOTED BY MOANING AND FACIAL GRIMMICING .
[2017-02-16] VITALS (9 sets, daily range): BP systolic 111–144; BP diastolic 70–98
--- NOTE | 2017-02-16 00:30 | NUR ---
MORPHINE TOLERATED WELL,PT LOOK COMFORTABLE AND SLEEPING.
--- NOTE | 2017-02-16 02:00 | NUR ---
PT SLEEPING WELL.
[2017-02-16] MEDS: ALBUTEROL 0.083% 2.5 MG/3 ML NEBU INH SCH ×5 (03:43→23:54)
[2017-02-16] MEDS: NACL 0.9% 1,000 ML IV SCH ×2 (03:48→12:16)
--- NOTE | 2017-02-16 04:20 | NUR ---
AM CARE GIVEN,ORAL CARE GIVEN . F/C CARE RENDERED TOLERATED WELL. NO BM THIS SHIFT.
[2017-02-16 06:23] LABS: HEMOGLOBIN 10.5 g/dL (12.0-18.0)
[2017-02-16] MEDS: LEVOTHYROXINE 0.05 MG TAB NG SCH (06:29)
--- NOTE | 2017-02-16 06:30 | NUR ---
SYNTROID NOT GIVEN PT IS NPO PER . ALSO PLANNING TO DO ST EVAL TODAY.
[2017-02-16 06:31] LABS: HEMATOCRIT 30.9 % (36-52); MEAN CORPUSCULAR HEMOGLOBIN 32 pg (27-31); MEAN CORPUSCULAR HGB CONC 34 g/dL (33-37); MEAN CORPUSCULAR VOLUME 93 fL (80-94); PLATELET COUNT (AUTO) 373 K/uL (140-450); RED BLOOD CELL COUNT(AUTO) 3.31 MIL/uL (4.20-6.10); RED CELL DISTRIBUTION WIDTH 13.3 % (11.6-13.7)
[2017-02-16 06:46] LABS: CARBON DIOXIDE 27.4 mmol/L (21-32); CREATININE 0.6 mg/dL (0.7-1.3); POTASSIUM 3.4 mmol/L (3.5-5.1)
[2017-02-16 06:49] LABS: MAGNESIUM 1.8 mg/dL (1.8-2.4); PHOSPHORUS 3.2 mg/dL (2.5-4.9)
[2017-02-16 06:55] LABS: BASOPHILS % (MANUAL) 1 % (0-2); LYMPHOCYTES % (MANUAL) 12 % (20-46); MONOCYTES % (MANUAL) 10 % (5-12)
--- NOTE | 2017-02-16 07:30 | NUR ---
RECEIVED REPORT FROM GLOBAL MARKETING COORDINATOR RN. PT OPENS EYES ABLE TO FOLLOW SIMPLE COMMANDS. HX OF MENTAL RETARDATION. FLACC 0. NO S/SX OF SOB. BILATERAL PERRL OBSERVED. PT ON NON REBREATHER. TOLERATING WELL. LUNGS RHOCHI THROUGHOUT. SR ON MONITOR. SKIN INTACT, WARM, DRY. RIJ INFUSING 0.9 NS @ 130 ML/HR,TOLERATING WELL. PER GLOBAL MARKETING COORDINATOR RN, TRIED TO INSERT NGT UNSUCCESSFULLY, BOWEL SOUND PRESENT X 4 QUADRANT. ABDOMEN SOFT, NONTENDER. VANEGAS CATHETER IN PLACE. DRAINING BLOODY URINE . HOB ELEVATED 30 DEGREES WITH LOW BED POSITION. WILL CONTINUE TO MONITOR.
[2017-02-16] MEDS: DIVALPROEX 500 MG TABEC PO SCH ×2 (09:00→21:00)
[2017-02-16] MEDS: BENAZEPRIL 5 MG TAB NG SCH (09:00)
[2017-02-16] MEDS: ATORVASTATIN 20 MG TAB NG SCH (09:00)
[2017-02-16] MEDS: OLANZapine 5 MG TAB NG SCH ×2 (09:00→21:00)
[2017-02-16] MEDS: ALPRAZolam 0.5 MG TAB NG SCH ×2 (09:00→21:00)
[2017-02-16] MEDS: LACTOBACILLUS RHAMNOSUS GG 1 EACH CAP PO SCH (09:00)
[2017-02-16] MEDS: guaiFENesin 600 MG TABER PO SCH ×2 (09:00→21:00)
[2017-02-16] MEDS ORDERED: POTASSIUM CHLORIDE 20% 40 MEQ/15 ML UDC PO SCH (09:00)
[2017-02-16] MEDS: QUEtiapine FUMARATE 100 MG TAB NG SCH ×2 (09:00→21:00)
[2017-02-16] MEDS: LACTULOSE 20 GM/30 ML UDC PO SCH ×3 (09:00→17:00)
--- NOTE | 2017-02-16 09:00 | NUR ---
NOTIFIED DR. GRANT UNABLE TO GIVE PT PO MEDS PT DOES NOT HAVE NGT TUBE.
[2017-02-16] MEDS: PANTOPRAZOLE 40 MG INJ VIAL IVP SCH (09:20)
[2017-02-16] MEDS ORDERED: MORPHINE SULFATE 2 MG/ML SYR IVP PRN (11:25)
--- NOTE | 2017-02-16 11:30 | NUR ---
PT RESTING IN BED AND WATCHING TV.
[2017-02-16] MEDS: DEXT 5% /NACL 0.9% 1,000 ML IV SCH (14:20)
--- NOTE | 2017-02-16 14:20 | NUR ---
CALLED PT BLOOD SUGAR 66, CHANGED IVF FROM 0.9 NS 130 ML/HR TO D5 0.9 NS TO 75 MLS/ HR, ORDER CARRIED OUT.
--- NOTE | 2017-02-16 15:46 | NUR ---
PT HAD LARGE SIZE AMOUNT OF SOFT BROWNISH BM, CLEANED PT, LINEN CHANGED, BED BATH GIVEN.
--- NOTE | 2017-02-16 17:05 | NUR ---
PT HAD SMALL AMOUNT OF SOFT BM, CLEANED PT, NO S/S OF RESPIRATORY DISTRESS NOTED, WILL CONTINUE TO MONITOR.
--- NOTE | 2017-02-16 18:40 | NUR ---
TRANSFERRED PT TO TELE 121 A, PT VITALS STABLE. REPORT GIVEN TO ROSEANNA SANDOVAL.
--- NOTE | 2017-02-16 19:10 | NUR ---
PATIENT REPORT RECEIVED FROM MORNING NURSE AT BEDSIDE. PATIENT TRANSFERRED TO [facility] FROM ICU. PATIENT IS AWAKE AND ALERT. APHASIC. BEDBOUND. PATIENT IS ON ROOM AIR. VANEGAS CATHETER IS IN PLACE . RIGHT IJ LINE TRIPLE LUMEN IN PLACE WITH D5NS RUNNING AT 75ML/HR. NO SIGNS AND SYMPTOMS OF DISTRESS NOTED. BED IN LOWEST POSITION, SIDE RAILS UP AND CALL LIGHT WITHIN REACH. WILL CONTINUE TO MONITOR.
--- NOTE | 2017-02-16 20:00 | NUR ---
PATIENT HAD A MODERATE SIZED BOWEL MOVEMENT. STOOL WAS BROWN AND SOFT. PERICARE DONE, LINENS CHANGED. PATIENT TOLERATED WELL.
[2017-02-16] MEDS: IPRATROPIUM 0.02% 0.5 MG/2.5 ML NEBU INH PRN (20:27)
--- NOTE | 2017-02-16 21:07 | NUR ---
NO NGT TUBE IN PLACE, NOTIFIED DR. PARR. PER DOCTOR, HOLD EVENING MEDICATIONS.
[2017-02-17] VITALS: BP 123/84
[2017-02-17] MEDS: ALBUTEROL 0.083% 2.5 MG/3 ML NEBU INH SCH ×6 (03:01→22:36)
[2017-02-17] MEDS: DEXT 5% /NACL 0.9% 1,000 ML IV SCH ×2 (03:40→17:00)
--- NOTE | 2017-02-17 03:54 | NUR ---
D5NS IVF NOT AVAILABLE. NOTIFIED POSTDOCTORAL FELLOW, HE SAID THERE'S NONE AVAILABLE. NOTIFIED DR. PARR, SAID IT WAS OK TO GIVE D5 1/2NS IN THE MEANTIME. PATIENT'S SODIUM LEVEL IS 143
[2017-02-17 04:00] VITALS: BP 150/90
[2017-02-17] MEDS: LEVOTHYROXINE 0.05 MG TAB NG SCH (05:39)
--- NOTE | 2017-02-17 07:15 | NUR ---
PATIENT REPORT GIVEN TO MORNING NURSE AT BEDSIDE. PATIENT IS IN STABLE CONDITION.
--- NOTE | 2017-02-17 07:16 | NUR ---
RECEIVED REPORT FROM VIBRATING SCREEN OPERATOR NURSE. PATIENT IN STABLE CONDITION. NO DISTRESS NOTED. RESPIRATIONS EVEN, UNLABORED, ON ROOM AIR. AAOX1, CALM, COOPERATIVE, SKIN COLOR APPROPRIATE TO ETHNICITY, WARM TO TOUCH. HAS RIGHT UPPER IJ CATHETER TRIPLE LUMEN, IVF RUNNING PER ORDERS. LUNGS HAS WHEEZING ON B/L LOWER LOBES, AND HAS DRY COUGH. VANEGAS CATHETER IN PLACE, DRAINING CLEAR, YELLOW URINE. MITTENS ON BOTH HANDS OF PATIENT DUE TO PATIENT PULLING OUT NGTUBE LAST NIGHT. CURRENTLY HAS NO NGTUBE. WILL NOTIFY MD AND AWAIT FURTHER ORDERS. SKIN IS INTACT. REVIEWED PLAN OF CARE WITH PATIENT. SAFETY MEASURES IN PLACE, CALL LIGHT WITHIN REACH, FALL PREVENTIONS IN PLACE. WILL CONTINUE TO MONITOR.
[2017-02-17 08:00] VITALS: BP 113/94
[2017-02-17 08:11] LABS: HEMOGLOBIN 10.9 g/dL (12.0-18.0); MEAN CORPUSCULAR HEMOGLOBIN 32 pg (27-31); MEAN CORPUSCULAR HGB CONC 34 g/dL (33-37); MEAN CORPUSCULAR VOLUME 94 fL (80-94); PLATELET COUNT (AUTO) 458 K/uL (140-450); RED CELL DISTRIBUTION WIDTH 13.2 % (11.6-13.7); WHITE BLOOD COUNT (AUTO) 15.1 K/uL (4.8-10.8)
[2017-02-17 08:22] LABS: MAGNESIUM 1.9 mg/dL (1.8-2.4); PHOSPHORUS 3.2 mg/dL (2.5-4.9)
[2017-02-17 08:26] LABS: ANION GAP 13.5 (8-16); CARBON DIOXIDE 25.7 mmol/L (21-32); CREATININE 0.6 mg/dL (0.7-1.3); POTASSIUM 3.2 mmol/L (3.5-5.1)
--- NOTE | 2017-02-17 08:45 | NUR ---
PATIENT SITTING IN BED WATCHING TV. NO DISTRESS NOTED. RESPIRATIONS EVEN, UNLABORED, ON ROOM AIR. IV PATENT, AND INFUSING IVF. CONDITION UNCHANGED. CONTINUES TO HAVE DRY INTERMITTENT COUGH. SAFETY MEASURES IN PLACE, CALL LIGHT WITHIN REACH, FALL PRECAUTIONS IN PLACE. WILL CONTINUE TO MONITOR.
[2017-02-17] MEDS: OLANZapine 5 MG TAB NG SCH ×2 (09:00→21:00)
[2017-02-17] MEDS: QUEtiapine FUMARATE 100 MG TAB NG SCH ×2 (09:00→21:00)
[2017-02-17] MEDS: ATORVASTATIN 20 MG TAB NG SCH (09:00)
[2017-02-17] MEDS: LACTULOSE 20 GM/30 ML UDC PO SCH ×3 (09:00→17:00)
[2017-02-17] MEDS: guaiFENesin 600 MG TABER PO SCH ×2 (09:00→21:00)
[2017-02-17] MEDS: LACTOBACILLUS RHAMNOSUS GG 1 EACH CAP PO SCH (09:00)
[2017-02-17] MEDS: BENAZEPRIL 5 MG TAB NG SCH (09:00)
[2017-02-17] MEDS: DIVALPROEX 500 MG TABEC PO SCH ×2 (09:00→21:00)
[2017-02-17] MEDS: ALPRAZolam 0.5 MG TAB NG SCH (09:00)
--- NOTE | 2017-02-17 09:00 | NUR ---
PATIENT PULLED OUT NGTUBE LAST NIGHT. WITHHELD 0900 GTUBE AND PO MEDICATIONS PER DR. GRANT ORDERS. PATIENT SITTING IN BED. NO DISTRESS NOTED. FLACC 0. CONDITION UNCHANGED. WILL CONTINUE TO MONITOR.
[2017-02-17 09:16] LABS: BASOPHILS % (MANUAL) 2 % (0-2); EOSINOPHILS % (MANUAL) 1 % (0-4); LYMPHOCYTES % (MANUAL) 16 % (20-46); MONOCYTES % (MANUAL) 15 % (5-12)
[2017-02-17] MEDS: PANTOPRAZOLE 40 MG INJ VIAL IVP SCH (10:08)
--- NOTE | 2017-02-17 10:15 | NUR ---
PATIENT SITTING IN BED WATCHING TV. NO DISTRESS NOTED. FLACC 0. RESPIRATIONS EVEN, UNLABORED, ON ROOM AIR. ASSISTED FACTORY WORKER ON CLEANING PATIENT. PATIENT HAD SMALL VOMIT X1 WHEN HEAD OF BED WAS FLAT DUE TO TURNING. PO/NGTUBE MEDS NOT GIVEN AT THIS TIME DUE TO PATIENT PULLING OUT GTUBE LAST NIGHT. WILL NOTIFY MD ON PLAN OF CARE. IV SITE IS INFUSING WITH IVF AT ORDERS ON RIGHT IJ TRIPLE LUMEN. PATIENT CONTINUES TO HAVE INTERMITTENT COUGH. SAFETY MEASURES IN PLACE, MITTENS ON BOTH HANDS, FALL PRECAUTIONS IN PLACE. WILL CONTINUE TO MONITOR.
--- NOTE | 2017-02-17 11:02 | NUR ---
SWALLOW ORDERED ON 02/15/17 NOT COMPLETE YET. PAGED KYLE HANKINS AT THIS TIME FOR SWALLOW EVAL FOLLOW-UP. WILL CONTINUE TO MONITOR.
[2017-02-17 12:00] VITALS: BP 118/87
--- NOTE | 2017-02-17 13:00 | NUR ---
PATIENT LYING SITTING IN BED WATCHING TV. NO DISTRESS NOTED. RESPIRATIONS EVEN, UNLABORED, ON ROOM AIR. FLACC 0. CONDITION UNCHANGED. WITHHELD NGTUBE MEDICATION PER MD ORDERS DUE TO PATIENT PULLING OUT NGTUBE LAST NIGHT AND AWAITING SWALLOW EVAL TO BE COMPLETED BY ST. REPOSITIONED PATIENT. SAFETY MEASURES IN PLACE, CALL LIGHT WITHIN REACH, FALL PREVENTIONS IN PLACE. WILL CONTINUE TO MONITOR.
--- NOTE | 2017-02-17 14:29 | NUR ---
PATIENT SITTING IN BED WATCHING TV. NO DISTRESS NOTED. FLACC 0. CONDITION UNCHANGED. WILL CONTINUE TO MONITOR.
--- NOTE | 2017-02-17 15:00 | NUR ---
PATIENT SITTING IN BED WATCHING TV. NO DISTRESS NOTED. RESPIRATIONS EVEN, UNLABORED ON ROOM AIR. CONDITION UNCHANGED. ASSISTED LOAN ORIGINATOR ON CLEANING PATIENT UP. CONTINUES TO HAVE INTERMITTENT COUGHING. SAFETY MEASURES IN PLACE, CALL LIGHT WITHIN REACH. WILL CONTINUE TO MONITOR.
[2017-02-17 16:00] VITALS: BP 115/84
--- NOTE | 2017-02-17 18:00 | NUR ---
PATIENT LYING IN BED COMFORTABLY. NO DISTRESS NOTED. FLACC 0. CONDITION UNCHANGED. CONTINUES TO HAVE COUGH THAT IS INTERMITTENT. REPOSITIONED PATIENT. SAFETY MEASURES IN PLACE, CALL LIGHT WITHIN REACH. WILL CONTINUE TO MONITOR.
--- NOTE | 2017-02-17 19:20 | NUR ---
GAVE REPORT TO OPERATIONS SYSTEMS SPECIALIST NURSE FOR CONTINUITY OF CARE. PATIENT IN STABLE CONDITION.
--- NOTE | 2017-02-17 19:21 | NUR ---
PATIENT REPORT RECEIVED FROM MORNING NURSE. PATIENT IS AWAKE AND ALERT. PATIENT IS ON ROOM AIR. NO SIGNS AND SYMPTOMS OF DISTRESS NOTED. RIJ TRIPLE LUMEN CATHETER IN PLACE. VANEGAS CATHETER PRESENT. SCD IN PLACE. BED IN LOWEST POSITION, SIDE RAILS UP AND CALL LIGHT WITHIN REACH. WILL CONTINUE TO MONITOR.
[2017-02-17 20:00] VITALS: BP 135/89
[2017-02-17] MEDS ORDERED: POTASSIUM CHLORIDE 40 MEQ, LIDOCAINE 1% 25 MG in NACL 0.9% 250 ML IV SCH (21:00)
[2017-02-17] MEDS: PIPER/TAZO 3.375GM/D5W PREMIX 50 ML IV SCH (21:00)
--- NOTE | 2017-02-17 21:00 | NUR ---
UNABLE TO ADMINISTER EVENING MEDS DUE TO NO NGT TUBE IN PLACE AND PATIENT'S INABILITY TO SWALLOW. DR. PARR NOTIFIED.
--- NOTE | 2017-02-17 21:00 | NUR ---
POTASSIUM 40MEQ WITH LIDOCAINE AND NS 250ML PREMIX NOT GIVEN, B/C IT IS NOT AVAILABLE. NOTIFIED DR. PARR. NEW ORDERS WILL BE PUT IN.
[2017-02-17] MEDS ORDERED: PIPERACILLIN/TAZOBACTAM 3.375 GM VIAL IV ONE (22:23)
[2017-02-18] VITALS (7 sets, daily range): BP systolic 124–145; BP diastolic 74–90
[2017-02-18] MEDS ORDERED: KCL 20 MEQ/WATER INJ PREMIX 200 ML IV ONE (01:17)
[2017-02-18] MEDS ORDERED: KCL 20 MEQ/WATER INJ PREMIX 100 ML IV SCH ×2 (01:20→04:30)
[2017-02-18] MEDS: ALBUTEROL 0.083% 2.5 MG/3 ML NEBU INH SCH ×5 (03:16→19:46)
--- NOTE | 2017-02-18 03:24 | NUR ---
DID NOT FINISH BREATHING TX AND CPT DUE TO PT PUSHING MASK AND MY HANDS. RN AWARE.
[2017-02-18] MEDS: PIPER/TAZO 3.375GM/D5W PREMIX 50 ML IV SCH ×2 (05:00→12:40)
[2017-02-18] MEDS ORDERED: PIPERACILLIN/TAZOBACTAM 3.375 GM VIAL IV ONE (06:19)
[2017-02-18] MEDS: DEXT 5% /NACL 0.9% 1,000 ML IV SCH ×3 (06:20→23:50)
[2017-02-18] MEDS: LEVOTHYROXINE 0.05 MG TAB NG SCH (06:30)
[2017-02-18 06:46] LABS: HEMATOCRIT 34.2 % (36-52); HEMOGLOBIN 11.6 g/dL (12.0-18.0); MEAN CORPUSCULAR HEMOGLOBIN 32 pg (27-31); MEAN CORPUSCULAR HGB CONC 34 g/dL (33-37); MEAN CORPUSCULAR VOLUME 94 fL (80-94); PLATELET COUNT (AUTO) 517 K/uL (140-450); RED BLOOD CELL COUNT(AUTO) 3.64 MIL/uL (4.20-6.10); RED CELL DISTRIBUTION WIDTH 13.4 % (11.6-13.7)
[2017-02-18 07:20] LABS: ANION GAP 12.9 (8-16); CARBON DIOXIDE 25.2 mmol/L (21-32); CREATININE 0.6 mg/dL (0.7-1.3); POTASSIUM 4.1 mmol/L (3.5-5.1)
--- NOTE | 2017-02-18 07:21 | NUR ---
PATIENT REPORT GIVEN TO MORNING NURSE. PATIENT IS IN STABLE CONDITION
[2017-02-18 07:22] LABS: PHOSPHORUS 3.4 mg/dL (2.5-4.9)
--- NOTE | 2017-02-18 07:22 | NUR ---
RECEIVED REPORT FROM THE RECORDING ARTIST NURSE AT BEDSIDE FOR CONTINUITY OF CARE. PT IS AWAKE AND ORIENTED TO HIS NAME. INTRODUCED MYSELF AND UPDATED THE BOARD. PT V/S WITHIN NORMAL RANGE. FLACC-0. R/T HERE FOR BREATHING TX. PT HAS HACKING COUGHING, NON PRODUCTIVE. PT IS BEDBOUND. SKIN INTACT. SOME RASH ON UPPER BACK. RECORDING ARTIST NURSE TOOK PICTURES. LBM: 02/18/17. VANEGAS CATH IN PLACE. 300ML WILBERTO URINE. SCD'S IN PLACE, MITTENS ON. RIJ TRIPLE LUMEN D5 1/2 NS INFUSING AT 75ML. TODAY'S PLAN: SWALLOW EVAL. WILL CONTINUE TO MONITOR PT.
[2017-02-18 07:36] LABS: EOSINOPHILS % (MANUAL) 2 % (0-4); LYMPHOCYTES % (MANUAL) 13 % (20-46); MONOCYTES % (MANUAL) 10 % (5-12)
[2017-02-18] MEDS: OLANZapine 5 MG TAB NG SCH ×2 (08:41→21:00)
[2017-02-18] MEDS: BENAZEPRIL 5 MG TAB NG SCH (08:41)
[2017-02-18] MEDS: QUEtiapine FUMARATE 100 MG TAB NG SCH ×2 (08:41→21:00)
[2017-02-18] MEDS: ATORVASTATIN 20 MG TAB NG SCH (08:41)
[2017-02-18] MEDS: LACTULOSE 20 GM/30 ML UDC PO SCH ×3 (08:42→16:07)
[2017-02-18] MEDS: LACTOBACILLUS RHAMNOSUS GG 1 EACH CAP PO SCH (08:42)
[2017-02-18] MEDS: DIVALPROEX 500 MG TABEC PO SCH ×2 (08:42→21:00)
[2017-02-18] MEDS: guaiFENesin 600 MG TABER PO SCH ×2 (08:43→21:00)
[2017-02-18] MEDS: PANTOPRAZOLE 40 MG INJ VIAL IVP SCH (09:12)
--- NOTE | 2017-02-18 09:15 | NUR ---
HELD ALL ORAL AND NG TUBE MEDS D/T DYSPHAGIA AND NO NG TUBE. ONLY ADMINISTERED PROTONIX IVP. PT TOLERATED WELL. SWALLOW EVAL PENDING. WILL CONTINUE TO MONITOR PT.
--- NOTE | 2017-02-18 10:02 | NUR ---
CIRCUITRY NEGATIVE INSPECTOR note (bedside swallow evaluation completed) [id number]. Bedside swallow evaluation completed, please see report for details. CIRCUITRY NEGATIVE INSPECTOR provided pt with education regarding purpose of evaluation and rationale for recommendations. Pt not able to benefit from education provided. No family/caregivers present at this time. Recommend: 1) strict NPO (oral cares only) 2) consider alternative method(s) of nutrition/hydration/medication vs comfort measures, as appropriate 3) CIRCUITRY NEGATIVE INSPECTOR to f/u for continued assessment of pt's ability to take PO safely (dysphagia therapy 1-2 x week x 2 weeks). G-codes: [id number] [id number] [facility] NOMS level 1. PVE for d/w RN (Sloane) prior to and following evaluation completion.
--- NOTE | 2017-02-18 10:48 | NUR ---
GIVING BREATHING TX TO PT THEN PT BECAME COMBATIVE HITTING MASK OFF AND HITTING RT HE WOULD NOT LEAVE TX ON TOOK TX OFF AND NOTIFIED JAIME GOMEZ OF THE SITUATION PT WAS IN NO DISTRESS AT THIS TIME
--- NOTE | 2017-02-18 13:50 | NUR ---
MEDICAL ACCOUNTS RECEIVABLE SPECIALIST CAME AND CLEANED AND CHANGED PT. WE PULLED UP PT IN BED. NO SIGNS OF DISTRESS. WILL CONTINUE TO MONITOR PT.
--- NOTE | 2017-02-18 15:05 | NUR ---
02/18/17 RD FOLLOW UP COMPLETED PLEASE REFER TO NUTRITION PROGRESS NOTE UNDER CARE ACTIVITY FOR ESTIMATED NUTRITION NEEDS. 1. D/T PT FAILING SWALLOW EVALUATION ON 02/18/17 CONTINUE NUTRITION SUPPORT: NUTREN PULMONARY AT 55 ML/HR VIA OGTUBE --THIS WILL MEET >95% OF ESTIMATED KCAL AND PROTEIN NEEDS 2. SHOULD PT PASS A SWALLOW EVALUATION ADVANCE DIET TO REGULAR WITH APPROPRIATE TEXTURE MODIFICATIONS IF NEEDED. 3. RD TO FOLLOW-UP 2-3 DAYS, HIGH RISK KADEEM GREENBERG RD
[2017-02-18 16:11] LABS: HEMATOCRIT 35.2 % (36-52); HEMOGLOBIN 11.8 g/dL (12.0-18.0); MEAN CORPUSCULAR HEMOGLOBIN 32 pg (27-31); MEAN CORPUSCULAR HGB CONC 34 g/dL (33-37); MEAN CORPUSCULAR VOLUME 95 fL (80-94); PLATELET COUNT (AUTO) 562 K/uL (140-450); RED CELL DISTRIBUTION WIDTH 13.3 % (11.6-13.7); WHITE BLOOD COUNT (AUTO) 18.7 K/uL (4.8-10.8)
[2017-02-18 16:45] LABS: LYMPHOCYTES % (MANUAL) 8 % (20-46)
[2017-02-18 16:46] LABS: EOSINOPHILS % (MANUAL) 1 % (0-4); METAMYELOCYTES % 1 % (0-0); MONOCYTES % (MANUAL) 4 % (5-12); PROMYELOCYTES % 1 % (0-0)
[2017-02-18] MEDS ORDERED: LORazepam 2 MG/ML VIAL IVP SCH (17:30)
--- NOTE | 2017-02-18 17:30 | NUR ---
ATTEMPTED TO INSERT AN NG TUBE X 4. PT WILL NOT ALLOW US TO INSERT. EVEN ADMINISTERED ATIVAN AND HAD KAMRYN MUSIC ON WHICH THE PT LIKES. HE JUST WON'T STAY STILL.
--- NOTE | 2017-02-18 19:24 | NUR ---
ENDORSED PT TO THE ELECTRONICS TECHNOLOGY DEPARTMENT CHAIR NURSE. PT IN STABLE CONDITION. WATCHING FOOTBALL ON TV.
--- NOTE | 2017-02-18 19:25 | NUR ---
RECD. RESTING IN BED, AWAKE, A/OX1. RESPIRATION EVEN AND UNLABORED. IV OF D5 1/2 NS INFUSING AT TKO, RIGHT IJ TRIPLE LUMEN. WITH OCCASIONAL UNPRODUCTIVE COUGH, 02 SAT - 95% ON ROOM AIR. F/C PATENT DRAINING YELLOW CLEAR URINE. ON BILATERAL LEG SEQUENTIALS. SAFETY MEASURES ENFORCED. PLAN OF CARE DISCUSSED. NEEDS REINFORCEMENT. NO APPEARANCE OF PAIN NOTED 0/10.
--- NOTE | 2017-02-18 20:00 | NUR ---
Patient's Plan of Care was discussed and reviewed with COMMUNITY RELATIONS COORDINATOR: YARI GONZALEZ.
--- NOTE | 2017-02-18 21:00 | NUR ---
DUE PO MEDICATIONS NOT GIVEN, PATIENT HAS NO NGT.
[2017-02-18] MEDS: LEVOFLOXACIN 750 MG/D5W PREMIX 150 ML IV SCH (21:53)
[2017-02-19] VITALS: BP 132/83
--- NOTE | 2017-02-19 00:20 | NUR ---
NEW NGT INSERTED BY CHARGE NURSE EFREM.
[2017-02-19] MEDS: QUEtiapine FUMARATE 100 MG TAB NG SCH (00:37)
[2017-02-19] MEDS: guaiFENesin 600 MG TABER PO SCH ×3 (00:38→21:30)
[2017-02-19] MEDS: OLANZapine 5 MG TAB NG SCH ×2 (00:40→09:00)
[2017-02-19] MEDS: DIVALPROEX 500 MG TABEC PO SCH ×3 (00:41→21:32)
--- NOTE | 2017-02-19 01:05 | NUR ---
NGT OUT OF PLACED, PATIENT PULLED OUT NGT EVEN WITH RESTRAINTS.
[2017-02-19] MEDS ORDERED: CLINDAMYCIN 600 MG/4 ML VIAL ONE ×2 (01:08→05:48)
--- NOTE | 2017-02-19 01:30 | NUR ---
CHARGE NURSE EFREM TRIED TO INSERT NGT, PATIENT FIGHTING. UNABLE TO INSERT NGT. WILL LET PATIENT REST FOR A WHILE.
[2017-02-19 04:00] VITALS: BP 101/67
--- NOTE | 2017-02-19 04:00 | NUR ---
NGT INSERTED BY CHARGE NURSE EFREM AT THE RIGHT NARES, PATIENT STILL TRYING TO PULL IT OUT, MITTENS PLACED ON BOTH HANDS.
[2017-02-19] MEDS: CLINDAMYCIN 600 MG in DEXTROSE 5% 50 ML IV SCH ×4 (05:47→12:36)
[2017-02-19] MEDS: LEVOTHYROXINE 0.05 MG TAB NG SCH (06:28)
[2017-02-19] MEDS: ALBUTEROL 0.083% 2.5 MG/3 ML NEBU INH SCH ×5 (06:56→19:07)
--- NOTE | 2017-02-19 07:00 | NUR ---
CONDITION REMAIN STABLE. CONFUSED, OCCASIONALLY TRIES TO PULL OUT NGT. ENDORSED TO AM NURSE FOR CONTINUITY OF CARE.
--- NOTE | 2017-02-19 07:20 | NUR ---
RECEIVED PT IN BED. AWAKE. ALERT ORIENTEDX1. NO SOB NOTED. NO SIGNS AND SYMPTOMS OF ACUTE PAIN OR DISCOMFORT NOTED AT THIS TIME. VANEGAS CATHETER IN PLACE. DRAINING CLEAR YELLOW URINE. NGT IN PLACE, YELLOWISH GASTRIC RESIDUAL NOTED. PT TRIES TO REMOVE NGT AND IV LINE. WILL LET THE DOCTOR KNOW FOR ORDERS. PT BEDBOUND.
[2017-02-19 08:00] VITALS: BP 118/71
[2017-02-19] MEDS ORDERED: VANCOMYCIN PER PHARMACY MC PRN (08:15)
[2017-02-19] MEDS ORDERED: LORazepam 2 MG/ML VIAL IVP PRN (08:15)
[2017-02-19] MEDS: LACTOBACILLUS RHAMNOSUS GG 1 EACH CAP PO SCH (09:00)
[2017-02-19] MEDS: LACTULOSE 20 GM/30 ML UDC PO SCH ×3 (09:00→16:15)
[2017-02-19] MEDS: DEXT 5% /NACL 0.9% 1,000 ML IV SCH (09:00)
[2017-02-19] MEDS ORDERED: VANCOMYCIN 1GM/DEXT 5% PREMIX 200 ML IV SCH (09:00)
--- NOTE | 2017-02-19 09:00 | NUR ---
AWAITING X-RAY KUB TO VERIFY PLACEMENT OF NGT. THEN WILL GIVE NGT MEDICATION.
[2017-02-19] MEDS: PANTOPRAZOLE 40 MG INJ VIAL IVP SCH (09:24)
--- NOTE | 2017-02-19 09:30 | NUR ---
CALLED PHARMACY, SPOKE TO KELLY MADE AWARE THAT VANCOMYCIN IVF NOT SCANNING. AND SAID OK TO MANUAL BARCODE FOR NOW.
[2017-02-19] MEDS: VANCOMYCIN 1,250 MG in NACL 0.9% 250 ML IV SCH ×2 (09:32→21:12)
--- NOTE | 2017-02-19 09:36 | NUR ---
CALLED X-RAY SPOKE WITH [facility] TO FOLLOW UP REGARDING THE XRAY KUB. SHE SAID THAT IF IN 15 MINS THEY'RE NOT YET HERE THEY WILL GIVE ME A CALL.
--- NOTE | 2017-02-19 10:00 | NUR ---
PT ON SOFT RESTRAINTS ORDERED. NO SIGNS AND SYMPTOMS OF SKIN BREAKDOWN NOTED.
--- NOTE | 2017-02-19 10:15 | NUR ---
TOWER EQUIPMENT INSTALLER CAME TO CLEAN PT. NGT WAS FOUND PULLED OUT AND WAS AT THE BED. PT AWAKE. PT KEEPS ON MOVING HIS HEAD. DR. DON MADE AWARE. AND ASKED IF WOUND WANT TO WAIT FOR DR. SERRATO FOR PEG CONSULT OR REINSERT NGT? DR. DON TO LET ATTENDING PHYSICIAN KNOW.
--- NOTE | 2017-02-19 11:50 | NUR ---
DR. RUBIO MADE AWARE THAT DR. MUHAMMAD CAME AND REQUESTED TO HAVE MORNING LABS DRAWN FOR TODAY.
[2017-02-19 11:52] LABS: APPEARANCE,URINE HAZY (CLEAR); BILIRUBIN,URINE NEGATIVE (NEGATIVE); BLOOD, URINE 3+ (NEGATIVE); LEUKOCYTE ESTERASE ,URINE NEGATIVE (NEGATIVE); NITRITE, URINE NEGATIVE (NEGATIVE); UGLUCOSE NEGATIVE (NEGATIVE)
[2017-02-19 11:55] VITALS: BP 91/57
[2017-02-19 12:03] LABS: COLOR,URINE YELLOW (YELLOW)
[2017-02-19 12:04] LABS: RBC,URINE 20-50 /HPF (0-5); WBC,URINE 0-5 (RARE) /HPF (0-5)
[2017-02-19 12:05] LABS: URINE AMORPHOUS URATE 3+ /HPF (None Seen)
--- NOTE | 2017-02-19 12:12 | NUR ---
NOTE Attempted to see pt, but pt currently waiting for PEG consult. To hold off on ST Tx at this time. Communicated with nurse, Nancy; agreed with hold on ST Tx. PVE Addendum: 02/19/17 at [address] Contacted by head of nursing. Per doctor request, continue with ST Tx d/t family refusing PEG at this time. Pt was alert upon arrival; sat up to [address] Tx session to pt; however, poor understanding demonstrated d/t cognition; trialed puree x10 and HTL x10 via 1/2 tsp sips from spoon administered by clinician; pt tolerated all well with no overt s/s of aspiration; no anterior spillage noted and pt had timely swallow; pt then refused all other trials. Attempted to return pt to reclined position (~75 degrees); however, pt then began coughing. Possibly secondary to pharyngeal residue; sat pt back up to remain for 30 min. Discussed pt with JAIME Cruz. Recommended puree/HTL diet with use of following safe swallow strategies: -1:1 assistance at all times (pt may not self feed) -food and liquid via spoon only - small bites/sips (1/2 tsp) - small amounts (4 oz) - alternate liquids/solids - upright at 90 degrees during meals and for 30 min post Continue Tx for family/caregiver training on safe swallow strategies and d/t pt remaining at high aspiration risks. Tx time: [id number]
--- NOTE | 2017-02-19 12:29 | NUR ---
DR. SERRATO CAME TO SEE PT. CALLED MAHIN JORDAN AND MADE AWARE OF PLAN FOR EGD WITH PEG TUBE PLACEMENT. MAHIN, VERBALIZED UNDERSTANDING, AND OBTAINED TELEPHONE CONSENT. TELEPHONE CONSENT VERIFIED BY TWO RNS.
--- NOTE | 2017-02-19 12:31 | NUR ---
TELEPHONE CONSENT INTO CHART.
[2017-02-19 13:03] LABS: ALBUMIN 2.7 g/dL (3.4-5.0); BILIRUBIN,DIRECT 0.1 mg/dL (0.0-0.3); TOTAL BILIRUBIN 0.4 mg/dL (0.0-1.0)
--- NOTE | 2017-02-19 13:08 | NUR ---
PER DR. RUBIO PT WILL NOT GO FOR PEG TUBE PLACEMENT, AND WILL HAVE A SWALLOW EVAL. ST CAME TO SEE PT. PT WAS ABLE TO TOLERATE THICK LIQUIDS AND PUREED, VERY SMALL FEEDING AT A TIME.
[2017-02-19] MEDS ORDERED: fentaNYL 0.05 MG/ML VIAL ONE (13:14)
[2017-02-19] MEDS ORDERED: MIDAZOLAM 2 MG/2 ML VIAL ONE (13:14)
[2017-02-19 13:50] LABS: HEMATOCRIT 35.5 % (36-52); HEMOGLOBIN 11.7 g/dL (12.0-18.0); MEAN CORPUSCULAR HEMOGLOBIN 31 pg (27-31); MEAN CORPUSCULAR HGB CONC 33 g/dL (33-37); MEAN CORPUSCULAR VOLUME 95 fL (80-94); PLATELET COUNT (AUTO) 475 K/uL (140-450); RED BLOOD CELL COUNT(AUTO) 3.74 MIL/uL (4.20-6.10); RED CELL DISTRIBUTION WIDTH 13.7 % (11.6-13.7); WHITE BLOOD COUNT (AUTO) 16.6 K/uL (4.8-10.8)
[2017-02-19 13:52] LABS: ALBUMIN 2.7 g/dL (3.4-5.0); ANION GAP 8.2 (8-16); CARBON DIOXIDE 24.8 mmol/L (21-32); CREATININE 0.6 mg/dL (0.7-1.3); TOTAL BILIRUBIN 0.4 mg/dL (0.0-1.0)
[2017-02-19 14:27] LABS: EOSINOPHILS % (MANUAL) 1 % (0-4); LYMPHOCYTES % (MANUAL) 9 % (20-46); MONOCYTES % (MANUAL) 15 % (5-12)
--- NOTE | 2017-02-19 14:44 | NUR ---
DR. RUBIO MADE AWARE OF POTASSIUM LEVEL 3. MD TO PUT AN ORDER.
[2017-02-19] MEDS ORDERED: NACL 0.45% 1,000 ML IV SCH (15:45)
[2017-02-19 16:00] VITALS: BP 132/57
[2017-02-19] MEDS: DEXT 5% / NACL 0.45% 1,000 ML IV SCH (16:15)
[2017-02-19] MEDS ORDERED: POTASSIUM CHLORIDE 40 MEQ, LIDOCAINE 1% 25 MG in NACL 0.9% 250 ML IV SCH (16:30)
--- NOTE | 2017-02-19 18:10 | NUR ---
PT HAD A BOWEL MOVEMENT, SOFT IN CONSISTENCY, BROWN IN COLOR, NON WATERY, MODERATE IN AMOUNT. NO SIGNS AND SYMPTOMS OF ACUTE PAIN OR DISCOMFORT AT THIS TIME. PT WAS ABLE TO TOLERATE HIS PUREE DIET WITH HONEY THICKENED LIQUIDS. NO SOB NOTED. NO COUGHING NOTED. NO ACUTE DISTRESS AT THIS TIME. KEPT PT UPRIGHT.
[2017-02-19] MEDS: FLUCONAZOLE 200 MG/NS PREMIX 100 ML IV SCH (18:23)
--- NOTE | 2017-02-19 19:01 | NUR ---
PT KEPT CLEAN, DRY AND COMFORTABLE. NEEDS ATTENDED. NO SOB NOTED. NO SIGNS AND SYMPTOMS OF DISTRESS NOTED. WILL ENDORSE TO NEXT SHIFT, PT ON STABLE CONDITION, FOR CONTINUITY OF CARE.
--- NOTE | 2017-02-19 19:10 | NUR ---
RECD. RESTING IN BED, AWAKE, A/OX1, MENTALLY CHALLENGED, SPEECH GARBLED, OCCASIONALLY SINGS CHILDREN SONGS. WATCHING TV. K-RIDER INFUSING AT 68ML/HR. REORIENTED TO HOSPITAL SETTING, JUST SMILES. PLAN OF CARE FOR THE SHIFT DISCUSSED. NEEDS REINFORCEMENT. SAFETY MEASURES ENFORCED. NO APPEARANCE OF PAIN NOTED 0/10.
[2017-02-19 20:00] VITALS: BP 126/58
--- NOTE | 2017-02-19 20:30 | NUR ---
WITH OCCASIONAL UNPRODUCTIVE COUGHING, REPOSITION IN BED, HOB ELEVATED. NO SOB NOTED.
[2017-02-19] MEDS: LEVOFLOXACIN 750 MG/D5W PREMIX 150 ML IV SCH (21:11)
[2017-02-19] MEDS: QUEtiapine FUMARATE 100 MG TAB PO SCH (21:30)
[2017-02-19] MEDS: OLANZapine 5 MG TAB PO SCH (21:32)
--- NOTE | 2017-02-19 23:10 | NUR ---
SLEEPING IN BED, ENDORSED TO JAIME ROJAS FOR CONTINUITY OF CARE.
--- NOTE | 2017-02-19 23:19 | NUR ---
RECEIVED REPORT FROM YARI GONZALEZ LVN, PATIENT IS SLEEPING IN BED, RESPIRATION EVEN AND UNLABORED, NO S/S OF DISTRESS NOTED, RT INTERNAL JUGULAR TRIPLE LUMEN CATHETER IN PLACE, TWO LUMEN ARE NOT PATENT, ONE LUMEN IS INFUSING VANCOCIN AT 165ML/HR. VANEGAS CATHETER IN PLACE, DRAINING URINE BY GRAVITY. CALL LIGHT WITHIN REACH, SAFETY MEASURE ENSURED, WILL CONTINUE TO MONITOR.
[2017-02-20] VITALS: BP 104/72
--- NOTE | 2017-02-20 00:49 | NUR ---
VITAL SIGNS TAKEN, STABLE. NO S/S OF DISTRESS NOTED, RESPIRATION EVEN AND UNLABORED, REPOSITIONED PATIENT TO HIS COMFORTABLE POSITION. CALL LIGHT WITHIN REACH, SAFETY MEASURE ENSURED, WILL CONTINUE TO MONITOR.
--- NOTE | 2017-02-20 00:53 | NUR ---
MISSED THE 2300 HHN TREATMENT AND CPT DUE TO BEING IN THE MIDDLE OF ASSISTING IN AN INTUBATION.
--- NOTE | 2017-02-20 02:19 | NUR ---
PATIENT WAS SLEEPING, EASY TO AROUSE, REPOSITIONED PATIENT TO HIS COMFORTABLE POSITION. CALL LIGHT WITHIN REACH, SAFETY MEASURE ENSURED, WILL CONTINUE TO MONITOR.
[2017-02-20] MEDS: ALBUTEROL 0.083% 2.5 MG/3 ML NEBU INH SCH ×7 (03:15→23:41)
[2017-02-20 04:00] VITALS: BP 98/65
--- NOTE | 2017-02-20 04:29 | NUR ---
NO CHANGE IN CONDITION, PATIENT IS SLEEPING, RESPIRATION EVEN AND UNLABORED, CALL LIGHT WITHIN REACH, SAFETY MEASURE ENSURED, WILL CONTINUE TO MONITOR.
[2017-02-20] MEDS: LEVOTHYROXINE 0.05 MG TAB NG SCH (05:37)
[2017-02-20 06:00] LABS: BASOPHILS # (AUTO) 0.3 K/uL (0.00-0.22); BASOPHILS % (AUTO) 3.3 % (0.0-2.0); EOSINOPHILS # (AUTO) 0.1 K/uL (0-0.4); EOSINOPHILS % (AUTO) 0.8 % (0.0-4.0); HEMATOCRIT 33.7 % (36-52); HEMOGLOBIN 11.2 g/dL (12.0-18.0); LYMPHOCYTES # (AUTO) 1.9 K/uL (2.0-11.5); LYMPHOCYTES % (AUTO) 21.3 % (20.5-51.1); MEAN CORPUSCULAR HEMOGLOBIN 31 pg (27-31); MEAN CORPUSCULAR HGB CONC 33 g/dL (33-37); MEAN CORPUSCULAR VOLUME 94 fL (80-94); MONOCYTES % (AUTO) 11.9 % (1.7-9.3); NEUTROPHILS # (AUTO) 5.4 K/uL (1.8-7.7); NEUTROPHILS % (AUTO) 62.7 % (42.2-75.2); PLATELET COUNT (AUTO) 433 K/uL (140-450); RED BLOOD CELL COUNT(AUTO) 3.59 MIL/uL (4.20-6.10); RED CELL DISTRIBUTION WIDTH 13.8 % (11.6-13.7); WHITE BLOOD COUNT (AUTO) 8.7 K/uL (4.8-10.8)
[2017-02-20 06:21] LABS: MAGNESIUM 2.1 mg/dL (1.8-2.4); PHOSPHORUS 4.1 mg/dL (2.5-4.9)
[2017-02-20 06:23] LABS: ANION GAP 13.8 (8-16); CARBON DIOXIDE 24.7 mmol/L (21-32); CREATININE 0.7 mg/dL (0.7-1.3); POTASSIUM 3.5 mmol/L (3.5-5.1)
--- NOTE | 2017-02-20 07:25 | NUR ---
ENDORSED PLAN OF CARE TO DAY RN . PATIENT IS STABLE. NO S/S OF DISTRESS NOTED.
--- NOTE | 2017-02-20 07:30 | NUR ---
RECEIVED PATIENT REPORT AT BEDSIDE. PATIENT AOX1. NO S/S OF DISTRESS NOTED. PATIENT ON ROOM AIR. NO SOB. VANEGAS CATHETER IN PLACE DRAINING CLEAR YELLOW URINE. TRIPLE LUMEN CENTRAL NOTED TO THE RIGHT IJ. PATIENT ON TELE MONITORING. BED LOWERED WITH CALL LIGHT WITHIN REACH. WILL CONTINUE TO MONITOR
[2017-02-20 07:55] VITALS: BP 119/73
[2017-02-20] MEDS: IPRATROPIUM 0.02% 0.5 MG/2.5 ML NEBU INH PRN (08:40)
[2017-02-20] MEDS: VANCOMYCIN 1,250 MG in NACL 0.9% 250 ML IV SCH (09:00)
[2017-02-20] MEDS: LACTULOSE 20 GM/30 ML UDC PO SCH ×3 (09:00→17:34)
[2017-02-20] MEDS: PANTOPRAZOLE 40 MG INJ VIAL IVP SCH (09:18)
--- NOTE | 2017-02-20 10:00 | NUR ---
SCHEDULED MEDS ADMINISTERED WITH APPLE SAUCE. PATIENT TOLERATED WELL
[2017-02-20] MEDS: LACTOBACILLUS RHAMNOSUS GG 1 EACH CAP PO SCH (10:04)
[2017-02-20] MEDS: OLANZapine 5 MG TAB NG SCH (10:04)
[2017-02-20] MEDS: ATORVASTATIN 20 MG TAB PO SCH (10:04)
[2017-02-20] MEDS: QUEtiapine FUMARATE 100 MG TAB PO SCH ×2 (10:05→20:50)
[2017-02-20] MEDS: guaiFENesin 600 MG TABER PO SCH ×2 (10:05→20:50)
[2017-02-20] MEDS: BENAZEPRIL 5 MG TAB PO SCH (10:06)
[2017-02-20] MEDS: DIVALPROEX 500 MG TABEC PO SCH ×2 (10:06→20:49)
[2017-02-20] MEDS: DEXT 5% / NACL 0.45% 1,000 ML IV SCH ×3 (10:41→17:34)
[2017-02-20 12:00] VITALS: BP 90/58
--- NOTE | 2017-02-20 12:09 | NUR ---
ST NOTE Talked with pt nurse (Regis) and received clearance for ST Tx. Attempted to see pt. Pt would not alert/awake. Discussed with nurse and nursing stated pt had been given medication that may make him lethargic. Nurse also reported that pt tolerated meds crushed in puree this AM. Pt not safe for feeding/trials at this time d/t alertness level. PVE
[2017-02-20 16:00] VITALS: BP 90/61
[2017-02-20] MEDS: FLUCONAZOLE 200 MG/NS PREMIX 100 ML IV SCH (17:34)
--- NOTE | 2017-02-20 18:00 | NUR ---
FED PATIENT DINNER. PATIENT TOLERATED PUREE DIET WELL
--- NOTE | 2017-02-20 19:22 | NUR ---
PATIENT REPORT GIVEN AT BEDSIDE. PATIENT ENDORSED IN STABLE CONDITION
--- NOTE | 2017-02-20 19:25 | NUR ---
RECEIVED PT IN STABLE CONDITION FROM AM NURSE. AWAKE, ALERT,ORIENTED X2. ON TELE MONITOR. NO S/S OF ANY DISCOMFORT NOR PAIN NOTED. HAS IVF INFUSING WELL ON THE RT INTERNAL JUGULAR CENTRAL LINE. BEDREST. WITH SOME RASHES AT THE BACK. VANEGAS CATH TO GRAVITY. BED ON LOW POSITION. SIDE RAILS PADDED FOR SEIZURE PRECAUTION. FREQUENT ROUNDS NEEDED. CALL LIGHT PLACED WITHIN EASY REACH. PT IS HAPPY SINGING. REPOSITIONED FOR COMFORT. WILL CONTINUE TO MONITOR.
[2017-02-20 19:50] VITALS: BP 98/60
[2017-02-20] MEDS: LEVOFLOXACIN 750 MG/D5W PREMIX 150 ML IV SCH (20:48)
[2017-02-20] MEDS: OLANZapine 5 MG TAB PO SCH (20:49)
[2017-02-20] MEDS ORDERED: VANCOMYCIN 1GM/DEXT 5% PREMIX 200 ML IV SCH (21:00)
--- NOTE | 2017-02-20 21:00 | NUR ---
DR. ESRRANO CAME AND SEEN PT. VANCOMYCIN IV WAS DISCONTINUED .
--- NOTE | 2017-02-20 21:30 | NUR ---
TRIED GIVING THE MEDICINES DUE BUT PT KEEP ON REFUSING.
--- NOTE | 2017-02-20 22:35 | NUR ---
@2233 HR ON THE MONITOR 38/MIN. CHECKED ON PT . SLEEPING AT THIS TIME. NO S/S OF ANY DISTRESS NOTED. AWAKEN, YELLING AND THEN HR BACK TO 62/MIN. WILL CONTINUE TO MONITOR. Addendum: 02/21/17 at 0214 by Gaviota Howell RN CANCEL ABOVE NOTES. WRONG PATIENT.
[2017-02-21 00:05] VITALS: BP 100/65
--- NOTE | 2017-02-21 00:30 | NUR ---
AWAKE. PT IS IN STABLE CONDITION. NO DISTRESS NOTED.
--- NOTE | 2017-02-21 02:30 | NUR ---
MADE ROUNDS . PT IS ASLEEP. NO S/S OF ANY DISCOMFORT NOTED.
[2017-02-21] MEDS: DEXT 5% / NACL 0.45% 1,000 ML IV SCH ×3 (03:20→18:29)
[2017-02-21] MEDS: ALBUTEROL 0.083% 2.5 MG/3 ML NEBU INH SCH ×6 (03:53→23:32)
--- NOTE | 2017-02-21 04:00 | NUR ---
PT IS IN STABLE CONDITION. WITH NO DISTRESS NOTED. JUST HAD BREATHING TREATMENT. O2 SAT 94%-95% ON ROOM AIR.
[2017-02-21 04:05] VITALS: BP 93/71
[2017-02-21] MEDS: LEVOTHYROXINE 0.05 MG TAB NG SCH (05:45)
--- NOTE | 2017-02-21 05:50 | NUR ---
BLOOD WAS DRAWN ON THE CENTRAL LINE .WILL FOLLOW UP RESULT.
[2017-02-21 06:45] LABS: BASOPHILS # (AUTO) 0.2 K/uL (0.00-0.22); BASOPHILS % (AUTO) 1.5 % (0.0-2.0); EOSINOPHILS # (AUTO) 0.1 K/uL (0-0.4); EOSINOPHILS % (AUTO) 1.1 % (0.0-4.0); HEMATOCRIT 35.1 % (36-52); HEMOGLOBIN 11.9 g/dL (12.0-18.0); LYMPHOCYTES # (AUTO) 1.5 K/uL (2.0-11.5); LYMPHOCYTES % (AUTO) 12.8 % (20.5-51.1); MEAN CORPUSCULAR HEMOGLOBIN 32 pg (27-31); MEAN CORPUSCULAR HGB CONC 34 g/dL (33-37); MEAN CORPUSCULAR VOLUME 94 fL (80-94); MONOCYTES # (AUTO) 1.1 K/uL (0.8-1.0); MONOCYTES % (AUTO) 9.1 % (1.7-9.3); NEUTROPHILS # (AUTO) 8.8 K/uL (1.8-7.7); NEUTROPHILS % (AUTO) 75.5 % (42.2-75.2); PLATELET COUNT (AUTO) 460 K/uL (140-450); RED BLOOD CELL COUNT(AUTO) 3.74 MIL/uL (4.20-6.10); RED CELL DISTRIBUTION WIDTH 13.7 % (11.6-13.7)
[2017-02-21 06:59] LABS: ANION GAP 14.3 (8-16); CARBON DIOXIDE 25.1 mmol/L (21-32); CREATININE 0.7 mg/dL (0.7-1.3); POTASSIUM 3.4 mmol/L (3.5-5.1)
[2017-02-21 07:05] LABS: PHOSPHORUS 3.4 mg/dL (2.5-4.9)
[2017-02-21 07:29] LABS: WHITE BLOOD COUNT (AUTO) 11.7 K/uL (4.8-10.8)
--- NOTE | 2017-02-21 07:30 | NUR ---
ENDORSED PT IN STABLE CONDITION TO AM NURSE.
--- NOTE | 2017-02-21 07:30 | NUR ---
RECEIVED REPORT FROM COMMERCIAL FOOD INSTRUCTOR NURSE, PT IS A/OX1, BEDBOUND, PT HAS VANEGAS CATH IN PLACE WITH 200 ML OF CLEAR YELLOW URINE, PT HAS RIGHT SIDE CENTRAL LINE X 3 LUMEN, NO S/S OF RESPIRATORY DISTRESS OR DISCOMFORT NOTED, DISCUSSED PLAN OF CARE WITH PT, PT UNABLE TO COMPREHEND, SAFETY/FALL PRECAUTIONS ARE IN PLACE, CALL LIGHT IS WITHIN REACH, WILL CONTINUE TO MONITOR.
[2017-02-21 08:00] VITALS: BP 102/75
[2017-02-21] MEDS: LACTOBACILLUS RHAMNOSUS GG 1 EACH CAP PO SCH (08:58)
[2017-02-21] MEDS: QUEtiapine FUMARATE 100 MG TAB PO SCH ×2 (08:58→20:57)
[2017-02-21] MEDS: guaiFENesin 600 MG TABER PO SCH ×2 (08:58→20:57)
[2017-02-21] MEDS: OLANZapine 5 MG TAB NG SCH (08:58)
[2017-02-21] MEDS: LACTULOSE 20 GM/30 ML UDC PO SCH ×4 (08:59→17:18)
[2017-02-21] MEDS: PANTOPRAZOLE 40 MG INJ VIAL IVP SCH (08:59)
[2017-02-21] MEDS: ATORVASTATIN 20 MG TAB PO SCH (08:59)
[2017-02-21] MEDS: DIVALPROEX 500 MG TABEC PO SCH ×2 (09:00→20:58)
[2017-02-21] MEDS: BENAZEPRIL 5 MG TAB PO SCH (09:00)
--- NOTE | 2017-02-21 09:00 | NUR ---
DUE MEDICATIONS GIVEN, PT REFUSED TO TAKE THE LACTULOSE, CALL LIGHT WITHIN REACH, WILL CONTINUE TO MONITOR.
--- NOTE | 2017-02-21 10:01 | NUR ---
WOUND CARE EVALUATION NOTE: REASON FOR EVALUATION : LOW YVROSE SCORE AND UPPER BACK RASHES COMPLETE SKIN ASSESSMENT DONE ON THIS 51 Y/O MALE PATIENT FROM [facility] ([facility]TO [facility] WITH INITIAL DIAGNOSIS OF SOB. PAST MEDICAL HISTORY INCLUDE CEREBRAL PALSY, HTN , HYPERLIPIDEMIA AND ATYPICAL PSYCHOSIS. ALL ABOVE INFORMATION WAS OBTAINED FROM THE ADMISSION H&P. LABS ARE WBC 11.7, H/H 11.9/35.1, GLUCOSE 88, ALBUMIN 2.7, PT/INR 10.3/10. AND PTT 31.7. CURRENT MEDS INCLUDE FLUCONAZOLE, ATORVASTATIN, QUETIAPINE, LEVOFLOXACIN AND MORPHINE SULFATE. PATIENT IS AWAKE ,ALERT BUT UNABLE TO COMPREHEND RELATED TO MENTALLY CHALLENGE STATUS. SKIN WARM TO TOUCH WNL, SKIN TURGOR GOOD. BLE CONTRACTURES, FEW HAIR GROWTH, CAPILLARY REFILLED <3 SEC. TOENAILS ARE SHORT AND THICKENED, BILATERAL DORSAL PEDAL PULSES PRESENT AND NORMAL, INITIAL PLAN DISCUSSED WITH PRIMARY RN. INTEGUMENTARY: FOREHEAD OLD HEALED SCAR BILATERAL LOWER EXTREMITIES -DRYNESS UPPER BACK MULTIPLE SKIN RASHES WITH SOME DRY PINPOINT SCABS LEFT AND RIGHT HEELS- BLANCHABLE REDNESS RECOMMENDATIONS: -CLEANSE UPPER BACK RASHES WITH SOAP AND WATER, PAT DRY, APPLY ANTIFUNGAL CREAM BID AND OPEN TO AIR -TURN AND REPOSITION Q 2H -ASSESS AND MONITOR SKIN CONDITION DURING POSITION CHANGE -OFFLOAD BILATERAL HEELS BY PLACING PILLOWS UNDER CALVES AT ALL TIMES, UNLESS OTHERWISE CONTRAINDICATED -PRESSURE REDISTRIBUTION SURFACE THERAPY -KEEP SKIN CLEAN AND DRY AT ALL TIMES. MAY APPLY BODY LOTION TO DRYNESS AREA. RECOMMENDATIONS DISCUSSED WITH PRIMARY RN AND DR. GRANT NO NEED TO FOLLOW UP, PLEASE CONTACT WOUND CARE NURSE FOR ANY QUESTION OR CHANGE OF SKIN CONDITION
[2017-02-21 12:00] VITALS: BP 95/64
--- NOTE | 2017-02-21 12:00 | NUR ---
PATIENT SLEEPING IN BED AT THIS TIME, CALL LIGHT WITHIN REACH.
[2017-02-21] MEDS: NYSTATIN/TRIAMCINOLONE OINT 15 GM TUBE TP SCH ×2 (12:39→23:02)
--- NOTE | 2017-02-21 14:25 | NUR ---
02/21/17 RD FOLLOW UP COMPLETED PLEASE REFER TO NUTRITION PROGRESS NOTE UNDER CARE ACTIVITY FOR ESTIMATED NUTRITION NEEDS. 1. CONTINUE PUREE DIET WITH HONEY THICKENED LIQUIDS TOLERATED PER MD 2. ADVANCE DIET TOLERATED TO REGULAR DIET WITH SPEECH THERAPIST RECOMMENDATIONS FOR TEXTURE MODIFICATIONS NEEDED 3. RD TO FOLLOW-UP 2-3 DAYS, HIGH RISK KADEEM GREENBERG RD
[2017-02-21 16:00] VITALS: BP 102/68
[2017-02-21] MEDS: FLUCONAZOLE 200 MG/NS PREMIX 100 ML IV SCH (17:18)
[2017-02-21] MEDS ORDERED: POTASSIUM CHLORIDE 40 MEQ, LIDOCAINE 1% 25 MG in NACL 0.9% 250 ML IV SCH (17:30)
--- NOTE | 2017-02-21 19:06 | NUR ---
DIETARY AIDE NOTE [id number] Pt seen for DIETARY AIDE tx following clearance by RN. Pt on puree/honey thick liquid diet since 02/19/17, and per RN, tolerating well. DIETARY AIDE attempted multiple times to complete PO intake follow up, however pt refused each time, pushing away bolus. DIETARY AIDE conferred w/RN re: continued monitoring of good PO intake, RN stated pt consumed 100% w/no overt s/sx of aspiration. DIETARY AIDE voiced understanding and endorsed to consult ST if pt demonstrates difficulty tolerating diet. RN voiced understanding. DIETARY AIDE to sign off, nursing to continue to follow. [id number]: CK SWALLOW NOMS 2
--- NOTE | 2017-02-21 19:20 | NUR ---
ENDORSED PT TO AUTOMOBILE TIRE BUILDER NURSE FOR CONTINUITY OF CARE, PT STABLE AT THIS TIME.
--- NOTE | 2017-02-21 19:21 | NUR ---
RECEIVED HANDOFF REPORT FROM AM RN. PATIENT A&OX1. FLACC 0. PATIENT IS ON ROOM AIR. RIGHT IJ IN PLACE, PATENT AND INTACT. VANEGAS CATHETER PRESENT, PATENT AND INTACT. NO SIGNS OR SYMPTOMS OF ACUTE DISTRESS NOTED. CALL LIGHT WITHIN REACH. WILL CONTINUE TO MONITOR.
[2017-02-21 20:00] VITALS: BP 140/85
[2017-02-21] MEDS: OLANZapine 5 MG TAB PO SCH (20:57)
--- NOTE | 2017-02-21 21:00 | NUR ---
PM MEDS GIVEN WITH EDUCATION. REINFORCEMENT NEEDED. FLACC0. NO SIGNS OR SYMPTOMS OF ACUTE DISTRESS NOTED. CALL LIGHT WITHIN REACH. WILL CONTINUE TO MONITOR.
[2017-02-21] MEDS: LEVOFLOXACIN 750 MG/D5W PREMIX 150 ML IV SCH (22:59)
[2017-02-22] VITALS: BP 109/71
[2017-02-22] MEDS: DEXT 5% / NACL 0.45% 1,000 ML IV SCH ×2 (02:55→13:55)
[2017-02-22] MEDS: ALBUTEROL 0.083% 2.5 MG/3 ML NEBU INH SCH ×3 (03:00→11:11)
--- NOTE | 2017-02-22 03:17 | NUR ---
PATIENT REFUSED BREATHING TREATMENT. WILL NOT COME OUT FROM UNDER THE COVERS, AND HIDES HIS FACE. FLACC 0. NO SIGNS OR SYMPTOMS OF ACUTE DISTRESS NOTED. CALL LIGHT WITHIN REACH. WILL CONTINUE TO MONITOR.
--- NOTE | 2017-02-22 03:17 | NUR ---
PT REFUSED TO COME OUT OF HIS COVERS TO RECEIVE HIS BREATHING TX AFTER MULTIPLE ATTEMPTS. NURSE NAYELI IS AWARE
[2017-02-22 04:00] VITALS: BP 106/69
[2017-02-22] MEDS: LEVOTHYROXINE 0.05 MG TAB NG SCH (05:56)
[2017-02-22 07:03] LABS: BASOPHILS # (AUTO) 0.3 K/uL (0.00-0.22); BASOPHILS % (AUTO) 3.8 % (0.0-2.0); EOSINOPHILS # (AUTO) 0.2 K/uL (0-0.4); EOSINOPHILS % (AUTO) 1.7 % (0.0-4.0); HEMATOCRIT 35.4 % (36-52); HEMOGLOBIN 11.6 g/dL (12.0-18.0); LYMPHOCYTES # (AUTO) 1.9 K/uL (2.0-11.5); LYMPHOCYTES % (AUTO) 21.6 % (20.5-51.1); MEAN CORPUSCULAR HEMOGLOBIN 31 pg (27-31); MEAN CORPUSCULAR HGB CONC 33 g/dL (33-37); MEAN CORPUSCULAR VOLUME 95 fL (80-94); MONOCYTES # (AUTO) 0.9 K/uL (0.8-1.0); MONOCYTES % (AUTO) 9.8 % (1.7-9.3); NEUTROPHILS # (AUTO) 5.7 K/uL (1.8-7.7); NEUTROPHILS % (AUTO) 63.1 % (42.2-75.2); PLATELET COUNT (AUTO) 404 K/uL (140-450); RED BLOOD CELL COUNT(AUTO) 3.72 MIL/uL (4.20-6.10); RED CELL DISTRIBUTION WIDTH 13.7 % (11.6-13.7)
[2017-02-22 07:22] LABS: ANION GAP 12.3 (8-16); CARBON DIOXIDE 26.5 mmol/L (21-32); CREATININE 0.8 mg/dL (0.7-1.3); POTASSIUM 3.8 mmol/L (3.5-5.1)
[2017-02-22 07:23] LABS: MAGNESIUM 1.8 mg/dL (1.8-2.4); PHOSPHORUS 3.1 mg/dL (2.5-4.9)
--- NOTE | 2017-02-22 07:41 | NUR ---
ENDORSED PLAN OF CARE TO AM RN. PATIENT IN STABLE CONDITION. NO SIGNS OR SYMPTOMS OF ACUTE DISTRESS NOTED. SAFETY MEASURES ENSURED
--- NOTE | 2017-02-22 07:42 | NUR ---
RECEIVED REPORT FROM MEASUREMENT AND SENSING TECHNICIAN NURSE NAYELI AT BEDSIDE FOR CONTINUITY OF CARE. PT IS AWAKE, A/O X 1. INTRODUCED SELF AND UPDATED BOARD. PT IN STABLE CONDITION.
[2017-02-22 08:00] VITALS: BP 124/92
[2017-02-22] MEDS: BENAZEPRIL 5 MG TAB PO SCH (08:11)
[2017-02-22] MEDS: LACTULOSE 20 GM/30 ML UDC PO SCH ×2 (08:11→13:00)
[2017-02-22] MEDS: guaiFENesin 600 MG TABER PO SCH (08:12)
[2017-02-22] MEDS: QUEtiapine FUMARATE 100 MG TAB PO SCH (08:12)
[2017-02-22] MEDS: LACTOBACILLUS RHAMNOSUS GG 1 EACH CAP PO SCH (08:12)
[2017-02-22] MEDS: DIVALPROEX 500 MG TABEC PO SCH (08:12)
[2017-02-22] MEDS: PANTOPRAZOLE 40 MG INJ VIAL IVP SCH (08:13)
[2017-02-22] MEDS: OLANZapine 5 MG TAB NG SCH (08:13)
[2017-02-22] MEDS: ATORVASTATIN 20 MG TAB PO SCH (08:13)
[2017-02-22] MEDS: NYSTATIN/TRIAMCINOLONE OINT 15 GM TUBE TP SCH (08:14)
--- NOTE | 2017-02-22 11:00 | NUR ---
D/C'D VANEGAS CATHETER. TIP INTACT. 850ML OF URINE NOTED. PT TOLERATED WELL. LYING IN BED WITH BLANKETS COVERING FACE. NO SIGNS OF DISTRESS. WILL CONTINUE TO MONITOR.
--- NOTE | 2017-02-22 11:18 | NUR ---
PT WOULD NOT ALLOW BREATHING TX TO FINISH HITTING AWAY NEBULIZER AND PULLING BLANKETS OVER HIS HEAD. PT ALSO WOULD NOT ALLOW CPT TO BE ADMINISTERED.
[2017-02-22 12:00] VITALS: BP 110/62
--- NOTE | 2017-02-22 14:33 | NUR ---
SPOKE WITH CHING FROM [facility] [phone]. HE IS AWARE THAT THE PATIENT WILL BE GOING HOME. HE SAID HE SPOKE WITH THE DOCTOR ABOUT HOME HEALTH FOR PT. CHING SAID THEY HAVE THEIR OWN HOME HEALTH AND USES [facility], . HE HAS ALREADY CONTACTED THEM.
--- NOTE | 2017-02-22 15:16 | NUR ---
PT D/C'D TO GO HOME AT [facility]. D/C FORMS SIGNED AND MEDS REVIEWED WITH CHING WHO SIGNED D/C FORMS. D/C'S CENTRAL LINE FROM [facility]. TIP INTACT. APPLIED PRESSURE AND DRESSING TO SITE. NO BLEEDING NOTED. REMOVED ID BANDS AND TELE MONITOR. PT CHANGED IN OWN CLOTHES. LEFT UNIT VIA WHEELCHAIR ACCOMPANIED BY NURSING HOME MEMBER, CHING AND YULIA. PT LEFT IN STABLE CONDITION.
== END 2017-02-22 15:10 | DRG 870 ==
LOC: MED 20:50 → MIC 02-10 01:49 → MTU 02-16 18:40
PROVIDERS: ADMIT Family Medicine Sports Medicine; ATTEND Family Medicine Sports Medicine
PROC: 5A1955Z Respiratory Ventilation, Greater than 96 Consecutive Hours (ICD-10-PCS; principal; 2017-02-10)
DX: A41.9 Sepsis, unspecified organism (principal); J96.01 Acute respiratory failure with hypoxia; J69.0 Pneumonitis due to inhalation of food and vomit; R65.21 Severe sepsis with septic shock; E44.0 Moderate protein-calorie malnutrition; E72.20 Disorder of urea cycle metabolism, unspecified; E87.6 Hypokalemia; E78.5 Hyperlipidemia, unspecified; E03.9 Hypothyroidism, unspecified
CPT/HCPCS: 31500; 36415; 36600; 51702; 71010; 74000; 76770; 80048; 80053; 80076; 80202; 81001; 82140; 82150; 82803; 82948; 83036; 83605; 83690; 83735; 83880; 84100; 84436; 84439; 84443; 84479; 85025; 85610; 85730; 87040; 87070; 87081; 87086; 92526; 92610; 93005; 94002; 94003; 94640; 94667; 96361; 96365; 96375; 97799; 99291; C9113; J1200; J1450; J1642; J1956; J2001; J2060; J2250; J2270; J2543; J2704; J2930; J2997; J3010; J3370; J3475; J3480; J3490; J7030; J7060; J7613; J7620; J7644; Q0092

== ENCOUNTER 2017-03-27 12:52 | Inpatient (IN) | payer OTHER ==
[~2017-03-27] VITALS: Ht 170.2 cm; Wt 61.2 kg
[~2017-03-27 12:52] MED LIST changes: +ALPR0.5T2 PO; -ASCO500C19 PO; -ASPI-292 PO; +ASPI81CT89 PO; +ATI.5 PO; +BENA5TAB4 PO; -CIPR500T4 PO; -CLON0.1T79 PO; +OLAN2.5T1 PO; +PRAV20TA2 PO; -QUET300T26 PO; +SYN.05 PO; -[UNRECOGNIZED DRUG - CODE] PO
[2017-03-27 13:00] VITALS: BP 123/50
[2017-03-27] MEDS ORDERED: NACL 0.9% 2,000 ML IV ONE (13:15)
[2017-03-27] MEDS ORDERED: IBUPROFEN 600 MG TAB ONE (13:18)
[2017-03-27] MEDS ORDERED: ACETAMINOPHEN 650 MG/20.3 ML UDC ONE (13:18)
[2017-03-27] MEDS ORDERED: PIPERACILLIN/TAZOBACTAM 3.375 GM in DEXTROSE 5% 50 ML IV ONE (13:25)
[2017-03-27] MEDS ORDERED: POLY17PD65 PO (13:30)
[2017-03-27] MEDS ORDERED: LEVOFLOXACIN 750 MG/D5W PREMIX 150 ML IV ONE (13:30)
[2017-03-27] MEDS ORDERED: PIPERACILLIN/TAZOBACTAM 3.375 GM VIAL IV ONE (14:10)
[2017-03-27 14:30] LABS: HEMATOCRIT 35.9 % (36-52); MEAN CORPUSCULAR HEMOGLOBIN 31 pg (27-31); MEAN CORPUSCULAR HGB CONC 34 g/dL (33-37); MEAN CORPUSCULAR VOLUME 93 fL (80-94); PLATELET COUNT (AUTO) 219 K/uL (140-450); RED BLOOD CELL COUNT(AUTO) 3.86 MIL/uL (4.20-6.10); RED CELL DISTRIBUTION WIDTH 14.4 % (11.6-13.7); WHITE BLOOD COUNT (AUTO) 9.1 K/uL (4.8-10.8)
[2017-03-27 14:52] LABS: LYMPHOCYTES % (MANUAL) 5 % (20-46); MONOCYTES % (MANUAL) 2 % (5-12)
[2017-03-27] MEDS ORDERED: NACL 0.9% 500 ML IV ONE (15:20)
[2017-03-27] MEDS ORDERED: ACETAMINOPHEN 325 MG TAB PO PRN (15:25)
[2017-03-27] MEDS ORDERED: ONDANSETRON 4 MG/2 ML VIAL IVP PRN (15:25)
[2017-03-27 15:50] LABS: ANION GAP 15.3 (8-16); CARBON DIOXIDE 23.3 mmol/L (21-32); POTASSIUM 3.6 mmol/L (3.5-5.1)
[2017-03-27 15:51] LABS: ALBUMIN 3.3 g/dL (3.4-5.0); CREATININE 1.2 mg/dL (0.7-1.3); TOTAL BILIRUBIN 0.3 mg/dL (0.0-1.0)
[2017-03-27 16:13] LABS: PROTHROMBIN TIME 10.6 secs (10.8-13.4)
[2017-03-27 16:25] VITALS: BP 122/68
[2017-03-27 16:29] LABS: CHOL/HDL RATIO 4.4 (1-4.5)
[2017-03-27] MEDS ORDERED: LACTULOSE PO SCH (17:00)
[2017-03-27] MEDS: NACL 0.9% 1,000 ML IV SCH (17:05)
[2017-03-27] MEDS ORDERED: LACTULOSE 20 GM/30 ML UDC PO SCH (17:30)
[2017-03-27 17:36] LABS: APPEARANCE,URINE CLEAR (CLEAR); BILIRUBIN,URINE NEGATIVE (NEGATIVE); BLOOD, URINE NEGATIVE (NEGATIVE); COLOR,URINE YELLOW (YELLOW); LEUKOCYTE ESTERASE ,URINE NEGATIVE (NEGATIVE); NITRITE, URINE NEGATIVE (NEGATIVE); PH,URINE 7.5 (5.0-9.0); UGLUCOSE NEGATIVE (NEGATIVE)
[2017-03-27 17:55] LABS: BARBITURATE, URINE NEG. ng/ml (NEG <=200); BENZODIAZEPINE, URINE POS. ng/mL (NEG <=200); CANNABINOID, URINE NEG. ng/mL (NEG <=50); COCAINE, URINE NEG. ng/mL (NEG <=300); OPIATE, URINE NEG. ng/mL (NEG <=2000); PHENCYCLIDINE SCREEN,URINE NEG. ng/mL (NEG <=25)
[2017-03-27] MEDS: PROMETHAZINE 6.25 MG/5 ML ORASYR PO PRN (18:15)
[2017-03-27] MEDS ORDERED: ALBUTEROL SULFATE/IPRATROPIU 3 ML SOL IH SCH (19:00)
[2017-03-27 20:00] VITALS: BP 104/60
[2017-03-27] MEDS ORDERED: CLINDAMYCIN 600 MG in DEXTROSE 5% 50 ML IV ONE (21:00)
[2017-03-27] MEDS ORDERED: OLANZAPINE 20 MG PO SCH (21:00)
[2017-03-27] MEDS: DIVALPROEX 500 MG TABEC PO SCH ×2 (21:00→21:54)
[2017-03-27] MEDS: QUEtiapine FUMARATE 100 MG TAB PO SCH ×2 (21:00→21:54)
[2017-03-27] MEDS: SIMVASTATIN 10 MG TAB PO SCH ×2 (21:00→21:55)
[2017-03-27] MEDS ORDERED: QUETIAPINE FUMARATE 400 MG PO SCH (21:00)
[2017-03-27] MEDS: BENAZEPRIL 5 MG TAB PO SCH (21:00)
[2017-03-27] MEDS: OLANZapine 5 MG TAB PO SCH (21:54)
[2017-03-27] MEDS: LORazepam 0.5 MG TAB PO SCH (21:55)
[2017-03-28] VITALS: BP 114/58
[2017-03-28] MEDS ORDERED: LABETALOL 100 MG/20 ML VIAL IV SCH (01:00)
[2017-03-28] MEDS: KETOROLAC 15 MG/ML VIAL IVP PRN ×2 (01:25→10:01)
[2017-03-28] MEDS ORDERED: LABETALOL 100 MG/20 ML VIAL ONE (01:42)
[2017-03-28] MEDS: NACL 0.9% 1,000 ML IV SCH ×2 (02:24→05:19)
[2017-03-28 04:00] VITALS: BP 102/67
[2017-03-28] MEDS: LEVOTHYROXINE 0.05 MG TAB PO SCH (06:13)
[2017-03-28] MEDS: ALBUTEROL SULFATE/IPRATROPIU 3 ML SOL IH PRN ×2 (07:03→16:04)
[2017-03-28 07:46] VITALS: BP 125/75
[2017-03-28 07:52] LABS: HEMATOCRIT 29.9 % (36-52); HEMOGLOBIN 9.9 g/dL (12.0-18.0); MEAN CORPUSCULAR HEMOGLOBIN 31 pg (27-31); MEAN CORPUSCULAR HGB CONC 33 g/dL (33-37); MEAN CORPUSCULAR VOLUME 92 fL (80-94); PLATELET COUNT (AUTO) 186 K/uL (140-450); RED BLOOD CELL COUNT(AUTO) 3.24 MIL/uL (4.20-6.10); RED CELL DISTRIBUTION WIDTH 14.7 % (11.6-13.7); WHITE BLOOD COUNT (AUTO) 5.4 K/uL (4.8-10.8)
[2017-03-28 08:12] LABS: ANION GAP 14.1 (8-16); CARBON DIOXIDE 24.1 mmol/L (21-32); POTASSIUM 4.2 mmol/L (3.5-5.1)
[2017-03-28 08:36] LABS: MAGNESIUM 1.6 mg/dL (1.8-2.4); PHOSPHORUS 2.4 mg/dL (2.5-4.9)
[2017-03-28] MEDS: LACTOBACILLUS RHAMNOSUS GG 1 EACH CAP PO SCH (09:00)
[2017-03-28] MEDS: QUEtiapine FUMARATE 100 MG TAB PO SCH ×3 (09:00→20:56)
[2017-03-28] MEDS: POLYETHYLENE GLYCOL 17 GM/PKT PO SCH (09:00)
[2017-03-28] MEDS: ASPIRIN 81 MG TAB.CHEW PO SCH (09:00)
[2017-03-28] MEDS: DOCUSATE SODIUM 100 MG GELCAP PO SCH (09:00)
[2017-03-28] MEDS: LORazepam 0.5 MG TAB PO SCH ×2 (09:00→20:57)
[2017-03-28] MEDS: OLANZapine 2.5 MG TAB PO SCH (09:00)
[2017-03-28] MEDS: DIVALPROEX 500 MG TABEC PO SCH ×3 (09:00→21:00)
[2017-03-28] MEDS: LACTULOSE 20 GM/30 ML UDC PO SCH ×3 (09:00→17:00)
[2017-03-28] MEDS ORDERED: DOCUSATE 100 MG/10 ML UDC GT SCH (09:00)
[2017-03-28 09:05] LABS: LYMPHOCYTES % (MANUAL) 22 % (20-46); MONOCYTES % (MANUAL) 8 % (5-12)
[2017-03-28 12:00] VITALS: BP 111/71
[2017-03-28] MEDS: PROMETHAZINE 6.25 MG/5 ML ORASYR PO PRN (13:12)
[2017-03-28] MEDS ORDERED: LEVOFLOXACIN 750 MG/D5W PREMIX 150 ML IV SCH (14:00)
[2017-03-28 16:00] VITALS: BP 108/61
[2017-03-28] MEDS ORDERED: MAG SULF 2000 MG/WATER PREMIX 100 ML IV SCH (16:30)
[2017-03-28] MEDS ORDERED: ACETAMINOPHEN 650 MG SUPP RC PRN (17:40)
[2017-03-28] MEDS ORDERED: ALBUTEROL SULFATE/IPRATROPIU 3 ML SOL IH PRN (17:45)
[2017-03-28] MEDS: ALBUTEROL SULFATE/IPRATROPIU 3 ML SOL IH SCH ×2 (19:21→22:46)
[2017-03-28] MEDS: PIPER/TAZO 3.375GM/D5W PREMIX 50 ML IV SCH (19:27)
[2017-03-28 20:00] VITALS: BP 109/57
[2017-03-28] MEDS: methylPREDNISolone SS 125 MG/2 ML VIAL IVP SCH (20:54)
[2017-03-28] MEDS: OLANZapine 5 MG TAB PO SCH (20:57)
[2017-03-28] MEDS: SIMVASTATIN 10 MG TAB PO SCH (20:57)
[2017-03-28] MEDS: BENAZEPRIL 5 MG TAB PO SCH (21:53)
[2017-03-29] VITALS (17 sets, daily range): BP systolic 81–132; BP diastolic 55–79
[2017-03-29] MEDS: PIPER/TAZO 3.375GM/D5W PREMIX 50 ML IV SCH ×5 (00:38→23:12)
[2017-03-29] MEDS: ALBUTEROL SULFATE/IPRATROPIU 3 ML SOL IH SCH ×6 (03:20→23:19)
[2017-03-29] MEDS: methylPREDNISolone SS 125 MG/2 ML VIAL IVP SCH ×3 (05:25→20:39)
[2017-03-29] MEDS: LEVOTHYROXINE 0.05 MG TAB PO SCH (05:30)
[2017-03-29] MEDS: DOCUSATE SODIUM 100 MG GELCAP PO SCH (09:00)
[2017-03-29] MEDS: OLANZapine 2.5 MG TAB PO SCH (09:00)
[2017-03-29] MEDS: POLYETHYLENE GLYCOL 17 GM/PKT PO SCH (09:00)
[2017-03-29] MEDS: LACTULOSE 20 GM/30 ML UDC PO SCH ×3 (09:00→17:23)
[2017-03-29] MEDS: ASPIRIN 81 MG TAB.CHEW PO SCH (09:49)
[2017-03-29] MEDS: LACTOBACILLUS RHAMNOSUS GG 1 EACH CAP PO SCH (09:50)
[2017-03-29] MEDS: QUEtiapine FUMARATE 100 MG TAB PO SCH ×2 (09:50→20:41)
[2017-03-29] MEDS: LORazepam 0.5 MG TAB PO SCH ×2 (09:50→20:40)
[2017-03-29] MEDS: DIVALPROEX 500 MG TABEC PO SCH ×2 (09:51→20:39)
[2017-03-29 10:40] LABS: BASOPHILS % (AUTO) 0.5 % (0.0-2.0); EOSINOPHILS % (AUTO) 0.2 % (0.0-4.0); HEMATOCRIT 27.3 % (36-52); LYMPHOCYTES # (AUTO) 0.3 K/uL (2.0-11.5); LYMPHOCYTES % (AUTO) 6.5 % (20.5-51.1); MEAN CORPUSCULAR HEMOGLOBIN 30 pg (27-31); MEAN CORPUSCULAR HGB CONC 33 g/dL (33-37); MEAN CORPUSCULAR VOLUME 92 fL (80-94); MONOCYTES # (AUTO) 0.1 K/uL (0.8-1.0); NEUTROPHILS # (AUTO) 4.5 K/uL (1.8-7.7); NEUTROPHILS % (AUTO) 90.8 % (42.2-75.2); PLATELET COUNT (AUTO) 159 K/uL (140-450); RED BLOOD CELL COUNT(AUTO) 2.96 MIL/uL (4.20-6.10); RED CELL DISTRIBUTION WIDTH 15.1 % (11.6-13.7)
[2017-03-29 11:26] LABS: MAGNESIUM 2.7 mg/dL (1.8-2.4); PHOSPHORUS 1.8 mg/dL (2.5-4.9)
[2017-03-29 12:10] LABS: WHITE BLOOD COUNT (AUTO) 4.9 K/uL (4.8-10.8)
[2017-03-29 14:16] LABS: ANION GAP 14.1 (8-16); CARBON DIOXIDE 25.3 mmol/L (21-32); CREATININE 0.8 mg/dL (0.7-1.3); POTASSIUM 3.4 mmol/L (3.5-5.1)
[2017-03-29] MEDS: SIMVASTATIN 10 MG TAB PO SCH (20:41)
[2017-03-29] MEDS: OLANZapine 5 MG TAB PO SCH (20:41)
[2017-03-29] MEDS: BENAZEPRIL 5 MG TAB PO SCH (22:00)
[2017-03-30] VITALS (18 sets, daily range): BP systolic 99–163; BP diastolic 62–94
[2017-03-30] MEDS: ALBUTEROL SULFATE/IPRATROPIU 3 ML SOL IH SCH ×6 (03:05→23:21)
[2017-03-30 05:07] LABS: HEMOGLOBIN 9.1 g/dL (12.0-18.0)
[2017-03-30] MEDS: PIPER/TAZO 3.375GM/D5W PREMIX 50 ML IV SCH ×3 (05:18→18:00)
[2017-03-30] MEDS: methylPREDNISolone SS 125 MG/2 ML VIAL IVP SCH ×3 (05:19→20:36)
[2017-03-30 05:23] LABS: ANION GAP 13.3 (8-16); CARBON DIOXIDE 24.8 mmol/L (21-32); CREATININE 0.7 mg/dL (0.7-1.3); POTASSIUM 3.1 mmol/L (3.5-5.1)
[2017-03-30] MEDS: LEVOTHYROXINE 0.05 MG TAB PO SCH (05:30)
[2017-03-30 05:59] LABS: HEMATOCRIT 28.1 % (36-52); MEAN CORPUSCULAR HEMOGLOBIN 30 pg (27-31); MEAN CORPUSCULAR HGB CONC 33 g/dL (33-37); MEAN CORPUSCULAR VOLUME 92 fL (80-94); PLATELET COUNT (AUTO) 175 K/uL (140-450); RED BLOOD CELL COUNT(AUTO) 3.04 MIL/uL (4.20-6.10); RED CELL DISTRIBUTION WIDTH 15.5 % (11.6-13.7); WHITE BLOOD COUNT (AUTO) 6.1 K/uL (4.8-10.8)
[2017-03-30 06:12] LABS: LYMPHOCYTES % (MANUAL) 8 % (20-46); MONOCYTES % (MANUAL) 4 % (5-12)
[2017-03-30] MEDS: LACTULOSE 20 GM/30 ML UDC PO SCH ×3 (08:27→16:48)
[2017-03-30] MEDS: DIVALPROEX 500 MG TABEC PO SCH ×2 (08:28→20:36)
[2017-03-30] MEDS: LORazepam 0.5 MG TAB PO SCH ×2 (08:28→20:37)
[2017-03-30] MEDS: QUEtiapine FUMARATE 100 MG TAB PO SCH ×2 (08:28→20:37)
[2017-03-30] MEDS: OLANZapine 2.5 MG TAB PO SCH (08:29)
[2017-03-30] MEDS: POLYETHYLENE GLYCOL 17 GM/PKT PO SCH (08:29)
[2017-03-30] MEDS: DOCUSATE SODIUM 100 MG GELCAP PO SCH (08:29)
[2017-03-30] MEDS: ASPIRIN 81 MG TAB.CHEW PO SCH (08:29)
[2017-03-30] MEDS: LACTOBACILLUS RHAMNOSUS GG 1 EACH CAP PO SCH (08:29)
[2017-03-30] MEDS: SODIUM PHOS / POTASSIUM PHOS 1 PKT PDR PO SCH (11:28)
[2017-03-30] MEDS: BENAZEPRIL 5 MG TAB PO SCH (20:36)
[2017-03-30] MEDS: OLANZapine 5 MG TAB PO SCH (20:38)
[2017-03-30] MEDS: SIMVASTATIN 10 MG TAB PO SCH (20:38)
[2017-03-31] VITALS (14 sets, daily range): BP systolic 95–150; BP diastolic 58–110
[2017-03-31] MEDS: PIPER/TAZO 3.375GM/D5W PREMIX 50 ML IV SCH ×5 (00:24→23:26)
[2017-03-31] MEDS: ALBUTEROL SULFATE/IPRATROPIU 3 ML SOL IH SCH ×6 (02:25→23:01)
[2017-03-31] MEDS: LEVOTHYROXINE 0.05 MG TAB PO SCH (05:44)
[2017-03-31] MEDS: methylPREDNISolone SS 125 MG/2 ML VIAL IVP SCH ×3 (05:44→20:22)
[2017-03-31] MEDS: OLANZapine 2.5 MG TAB PO SCH (08:07)
[2017-03-31] MEDS: QUEtiapine FUMARATE 100 MG TAB PO SCH ×2 (08:07→20:21)
[2017-03-31] MEDS: LACTOBACILLUS RHAMNOSUS GG 1 EACH CAP PO SCH (08:08)
[2017-03-31] MEDS: LORazepam 0.5 MG TAB PO SCH ×2 (08:08→20:22)
[2017-03-31] MEDS: ASPIRIN 81 MG TAB.CHEW PO SCH (08:08)
[2017-03-31] MEDS: DOCUSATE SODIUM 100 MG GELCAP PO SCH (08:08)
[2017-03-31] MEDS: DIVALPROEX 500 MG TABEC PO SCH ×2 (08:08→20:22)
[2017-03-31] MEDS: SODIUM PHOS / POTASSIUM PHOS 1 PKT PDR PO SCH (08:37)
[2017-03-31] MEDS: POLYETHYLENE GLYCOL 17 GM/PKT PO SCH (09:00)
[2017-03-31] MEDS: LACTULOSE 20 GM/30 ML UDC PO SCH (09:00)
[2017-03-31 11:05] LABS: HEMATOCRIT 27.9 % (36-52); HEMOGLOBIN 8.9 g/dL (12.0-18.0); MEAN CORPUSCULAR HEMOGLOBIN 30 pg (27-31); MEAN CORPUSCULAR HGB CONC 32 g/dL (33-37); MEAN CORPUSCULAR VOLUME 92 fL (80-94); PLATELET COUNT (AUTO) 224 K/uL (140-450); RED BLOOD CELL COUNT(AUTO) 3.02 MIL/uL (4.20-6.10); WHITE BLOOD COUNT (AUTO) 8.8 K/uL (4.8-10.8)
[2017-03-31] MEDS ORDERED: PROBIOTIC SCREEN 1 EA MISC MC PRN (11:30)
[2017-03-31 11:39] LABS: ANION GAP 11.3 (8-16); CREATININE 0.8 mg/dL (0.7-1.3); POTASSIUM 3.3 mmol/L (3.5-5.1)
[2017-03-31 11:41] LABS: BASOPHILS % (MANUAL) 0 % (0-2); EOSINOPHILS % (MANUAL) 0 % (0-4); LYMPHOCYTES % (MANUAL) 9 % (20-46); MONOCYTES % (MANUAL) 5 % (5-12)
[2017-03-31 11:42] LABS: PHOSPHORUS 3.7 mg/dL (2.5-4.9)
[2017-03-31] MEDS ORDERED: POTASSIUM CHLORIDE 40 MEQ, LIDOCAINE 1% 25 MG in NACL 0.9% 250 ML IV SCH (18:25)
[2017-03-31] MEDS: OLANZapine 5 MG TAB PO SCH (20:22)
[2017-03-31] MEDS: SIMVASTATIN 10 MG TAB PO SCH (20:22)
[2017-03-31] MEDS: BENAZEPRIL 5 MG TAB PO SCH (20:27)
[2017-03-31] MEDS ORDERED: POTASSIUM CHLORIDE 10 MEQ TABER PO SCH (21:45)
[2017-04-01] VITALS: BP 133/80
[2017-04-01 04:00] VITALS: BP 117/66
[2017-04-01] MEDS: methylPREDNISolone SS 125 MG/2 ML VIAL IVP SCH ×3 (04:04→20:59)
[2017-04-01] MEDS: ALBUTEROL SULFATE/IPRATROPIU 3 ML SOL IH SCH ×5 (04:11→19:20)
[2017-04-01] MEDS: PIPER/TAZO 3.375GM/D5W PREMIX 50 ML IV SCH ×4 (05:47→23:53)
[2017-04-01] MEDS: LEVOTHYROXINE 0.05 MG TAB PO SCH (05:47)
[2017-04-01 08:00] VITALS: BP 112/73
[2017-04-01 08:54] LABS: ANION GAP 13.1 (8-16); CREATININE 0.8 mg/dL (0.7-1.3); POTASSIUM 4.1 mmol/L (3.5-5.1)
[2017-04-01] MEDS: SODIUM PHOS / POTASSIUM PHOS 1 PKT PDR PO SCH (09:27)
[2017-04-01] MEDS: POLYETHYLENE GLYCOL 17 GM/PKT PO SCH (09:27)
[2017-04-01] MEDS: ASPIRIN 81 MG TAB.CHEW PO SCH (09:28)
[2017-04-01] MEDS: LACTOBACILLUS RHAMNOSUS GG 1 EACH CAP PO SCH (09:28)
[2017-04-01] MEDS: DIVALPROEX 500 MG TABEC PO SCH ×2 (09:28→20:59)
[2017-04-01] MEDS: LORazepam 0.5 MG TAB PO SCH ×2 (09:28→20:59)
[2017-04-01] MEDS: QUEtiapine FUMARATE 100 MG TAB PO SCH ×2 (09:28→20:59)
[2017-04-01] MEDS: DOCUSATE SODIUM 100 MG GELCAP PO SCH (09:28)
[2017-04-01] MEDS: LACTULOSE 20 GM/30 ML UDC PO SCH ×3 (09:29→17:00)
[2017-04-01] MEDS: OLANZapine 2.5 MG TAB PO SCH (09:40)
[2017-04-01] MEDS: NACL 0.45% 1,000 ML IV SCH (10:15)
[2017-04-01 12:00] VITALS: BP 133/77
[2017-04-01 16:00] VITALS: BP 139/90
[2017-04-01 20:00] VITALS: BP 124/76
[2017-04-01] MEDS: SIMVASTATIN 10 MG TAB PO SCH (20:58)
[2017-04-01] MEDS: OLANZapine 5 MG TAB PO SCH (20:59)
[2017-04-01] MEDS: BENAZEPRIL 5 MG TAB PO SCH (21:03)
[2017-04-02] VITALS: BP 119/66
[2017-04-02] MEDS: ALBUTEROL SULFATE/IPRATROPIU 3 ML SOL IH SCH ×4 (02:16→15:20)
[2017-04-02] MEDS: NACL 0.45% 1,000 ML IV SCH (03:37)
[2017-04-02 04:00] VITALS: BP 121/62
[2017-04-02] MEDS: methylPREDNISolone SS 125 MG/2 ML VIAL IVP SCH ×2 (04:15→12:20)
[2017-04-02] MEDS: LEVOTHYROXINE 0.05 MG TAB PO SCH (05:48)
[2017-04-02] MEDS: PIPER/TAZO 3.375GM/D5W PREMIX 50 ML IV SCH (05:49)
[2017-04-02 08:00] VITALS: BP 130/85
[2017-04-02 08:18] LABS: BASOPHILS # (AUTO) 0.2 K/uL (0.00-0.22); EOSINOPHILS % (AUTO) 0.1 % (0.0-4.0); HEMOGLOBIN 9.8 g/dL (12.0-18.0); LYMPHOCYTES # (AUTO) 0.8 K/uL (2.0-11.5); LYMPHOCYTES % (AUTO) 10.6 % (20.5-51.1); MEAN CORPUSCULAR HEMOGLOBIN 29 pg (27-31); MEAN CORPUSCULAR HGB CONC 32 g/dL (33-37); MEAN CORPUSCULAR VOLUME 93 fL (80-94); MONOCYTES # (AUTO) 0.3 K/uL (0.8-1.0); MONOCYTES % (AUTO) 3.5 % (1.7-9.3); NEUTROPHILS # (AUTO) 6.2 K/uL (1.8-7.7); NEUTROPHILS % (AUTO) 82.8 % (42.2-75.2); PLATELET COUNT (AUTO) 239 K/uL (140-450); RED BLOOD CELL COUNT(AUTO) 3.33 MIL/uL (4.20-6.10); RED CELL DISTRIBUTION WIDTH 16.2 % (11.6-13.7)
[2017-04-02 08:47] LABS: ANION GAP 16.6 (8-16); CARBON DIOXIDE 25.3 mmol/L (21-32); CREATININE 0.7 mg/dL (0.7-1.3); POTASSIUM 3.9 mmol/L (3.5-5.1)
[2017-04-02 09:12] LABS: WHITE BLOOD COUNT (AUTO) 7.5 K/uL (4.8-10.8)
[2017-04-02] MEDS: QUEtiapine FUMARATE 100 MG TAB PO SCH (09:28)
[2017-04-02] MEDS: LORazepam 0.5 MG TAB PO SCH (09:28)
[2017-04-02] MEDS: DOCUSATE SODIUM 100 MG GELCAP PO SCH (09:28)
[2017-04-02] MEDS: LACTOBACILLUS RHAMNOSUS GG 1 EACH CAP PO SCH (09:28)
[2017-04-02] MEDS: SODIUM PHOS / POTASSIUM PHOS 1 PKT PDR PO SCH (09:29)
[2017-04-02] MEDS: ASPIRIN 81 MG TAB.CHEW PO SCH (09:29)
[2017-04-02] MEDS: DIVALPROEX 500 MG TABEC PO SCH (09:29)
[2017-04-02] MEDS: OLANZapine 2.5 MG TAB PO SCH (09:29)
[2017-04-02] MEDS: LACTULOSE 20 GM/30 ML UDC PO SCH ×3 (09:30→17:07)
[2017-04-02] MEDS: POLYETHYLENE GLYCOL 17 GM/PKT PO SCH (09:30)
[2017-04-02 12:00] VITALS: BP 135/87
[2017-04-02 16:00] VITALS: BP 145/88
[2017-04-02] MEDS ORDERED: IPRA3AMP IH ×2 (16:34)
[2017-04-02] MEDS ORDERED: LACT10CA PO (16:34)
[2017-04-02] MEDS ORDERED: SM1I IVP (16:34)
[2017-04-02] MEDS ORDERED: CLIN300C2 PO (16:34)
[2017-04-02] MEDS ORDERED: LEVO750T2 PO (16:34)
== END 2017-04-02 19:15 | DRG 871 ==
LOC: MED 12:52 → MTU 15:39 → MIC 03-29 13:58 → MTU 03-31 15:49
PROVIDERS: ADMIT Family Medicine Sports Medicine; ATTEND Family Medicine Sports Medicine
PROC: 5A09457 Assistance with Respiratory Ventilation, 24-96 Consecutive Hours, Continuous Positive Airway Pressure (ICD-10-PCS; principal; 2017-03-30)
DX: A41.9 Sepsis, unspecified organism (principal); J69.0 Pneumonitis due to inhalation of food and vomit; J96.01 Acute respiratory failure with hypoxia; N17.0 Acute kidney failure with tubular necrosis; E44.0 Moderate protein-calorie malnutrition; E72.20 Disorder of urea cycle metabolism, unspecified; E87.1 Hypo-osmolality and hyponatremia; F23 Brief psychotic disorder; E86.0 Dehydration; I10 Essential (primary) hypertension; E78.5 Hyperlipidemia, unspecified; G40.909 Epilepsy, unspecified, not intractable, without status epilepticus; E03.9 Hypothyroidism, unspecified; Z91.041 Radiographic dye allergy status; Z79.82 Long term (current) use of aspirin; Z79.899 Other long term (current) drug therapy; Z68.21 Body mass index [BMI] 21.0-21.9, adult
CPT/HCPCS: 36415; 36600; 71045; 80048; 80053; 80305; 81003; 82140; 82150; 82803; 83036; 83605; 83690; 83735; 83880; 84100; 84484; 85025; 85610; 85730; 87040; 87070; 87081; 87086; 87205; 87804; 89220; 93005; 94640; 94660; 94667; 96365; 96367; 99291; J1885; J1956; J2001; J2543; J2930; J3475; J3480; J3490; J7030; J7060; J7620; Q0092